=== PATIENT | female | born 1960 | race African-American/Black ===

== ENCOUNTER 2016-04-13 10:08 | Inpatient (IN) ==
--- NOTE | 2016-04-13 10:48 | PROVIDER DOCUMENTATION ---
HPI-General Adult - General Chief Complaint: Abnormal Lab[s] Stated Complaint: ABNORMAL LABS Time Seen by Provider: 04/13/16 10:27 Source: patient Allergies/Adverse Reactions: Patient Allergies Allergy/AdvReac Type Severity Reaction Status Date / Time No Known Allergies Allergy Verified 04/13/16 10:25 Home Medications: Home Medication List Medication Instructions Recorded Confirmed Last Taken Type Lisinopril/Hydrochlorothiazide 1 each PO DAILY 03/23/14 01/29/16 04/13/16 07:15 History [Lisinopril-Hctz 20-25 mg Tab] Potassium Chloride 20 meq PO DAILY 06/28/15 01/29/16 04/11/16 08:00 History Mesalamine D.r. [Lialda] 4.8 gm PO DAILY #112 tablet 01/31/16 04/11/16 10:00 Rx Sucralfate [Carafate] 1 gm PO 4XDAY #120 tablet 01/31/16 04/11/16 08:00 Rx Prednisone 10 mg PO DAILY 04/13/16 04/13/16 04/12/16 08:00 History - History of Present Illness -Gen Adult Nature of Presenting Problems: Pt is 55 y/o F presents to the ED with abnormal labs. Pt states having lab work done at [facility] where she receives iron infusions due to anemia. Pt denies pain at this time. Pt states having sarcoidosis. Pt states having acute renal failure in 2013. Pt denies N/V/D Location of Pain/Injury: reports: none Pain Radiation: reports: no radiation Quality of Pain: reports: none Onset/Duration: reports: just prior to arrival Timing: reports: still present Context/Activities at Onset: reports: light activity Modifying Factors: improves with: nothing Associated Symptoms: reports: shortness of breath. denies: anxiety, arm pain, back/neck pain, chest pain, constipation, cough, diaphoresis, diarrhea, dizziness, EENT symptoms, fatigue, fever/chills, genitourinary problems, headaches, heartburn, joint pain, loss of appetite, malaise, muscle aches, sinus congestion/drainage, nausea, rash, seizure, sensory/motor loss, pain with inspiration, swelling/mass in abdomen, syncope, vomiting, weakness, trouble walking Similar Symptoms Previously?: Yes Recently seen or treated by another doctor?: No Review of Systems - Adult - REVIEW OF SYSTEMS - ADULT Constitutional: denies: chills, fever Eyes: denies: blurred vision, double vision Ears, Nose, Mouth & Throat: denies: ear pain, nose pain, throat pain Cardiovascular: denies: chest pain, heart murmur, irregular heart rate Respiratory: reports: shortness of breath. denies: cough, wheezing Gastrointestinal: denies: abdominal pain, diarrhea, nausea, vomiting Genitourinary: denies: dysuria, hematuria Musculoskeletal: denies: bone pain, joint pain, neck pain Integumentary: denies: hives, itching Neurological: denies: dizziness/vertigo, headache/migraines Psychiatric: reports: no symptoms reported Endocrine: reports: no symptoms reported Hematologic/Lymphatic: reports: no symptoms reported Allergic/Immunologic: reports: no symptoms reported All Other Systems: Reviewed and Negative Past History - Adult - PAST MEDICAL HISTORY-ADULT Review of Records: reports: Nursing Assessment Review, Medications Reviewed, Social history reviewed & non-contributory. Major Childhood Illnesses: reports: denies history Cardiovascular: reports: HTN Respiratory: reports: other (sarcoidosis) Gastrointestinal: reports: GERD Obstetrical/Gynecological: reports: denies history Genitourinary: reports: kidney disease (acute) Musculoskeletal: reports: arthritis Neurological: reports: denies history Endocrine/Immune: reports: denies history Other Conditions: reports: denies history Additional History: renal failure - PRIOR SURGERIES/PROCEDURES Surgical/Procedure History: reports: hysterectomy, - PRIOR HOSPITALIZATIONS Prior Hospitalizations: reports: for other non-related - IMMUNIZATION STATUS Childhood Immunizations: See Nurse Assessment Flu Vaccine: See Nurse Assessment - FAMILY HISTORY Family History: reviewed, not pertinent - SOCIAL HISTORY Smoking: denies Substance Use: denies Living Situation: family Physical Exam-General - PHYSICAL EXAM-ADULT Initial Vital Signs Reviewed: Yes - CONSTITUTIONAL General Appearance: appears well, alert, no apparent distress - EYES Eyes: PERRL/EOMI, fundi clear, no AV nicking, pale conjunctivae - HEAD, EARS, NOSE, MOUTH & THROAT HENMT: normocephalic/atraumatic, moist mucous membranes, normal ENT inspection, TMs normal, pharynx normal - NECK Neck: non-tender, full range of motion, supple, normal inspection - RESPIRATORY Respiratory: chest non-tender, lungs clear, normal breath sounds, no pleuratic chest pain, no respiratory distress, no accessory muscle use - CARDIOVASCULAR Cardiovascular: normal peripheral pulses, regular rate, rhythm, no edema, no gallop, no JVD, no murmur - GASTROINTESTINAL (ABDOMEN) Abdominal Exam: normal bowel sounds, non tender, soft, no organomegaly, no pulsatile mass - LYMPHATIC Lymphatic: no adenopathy - MUSCULOSKELETAL Back Exam: normal inspection, no CVA tenderness, no vertebral tenderness Extremity: normal range of motion, non-tender, normal gait, normal inspection, no pedal edema, no calf tenderness, normal capillary refill, pelvis stable - SKIN Integumentary: normal turgor, warm/dry, pallor - NEUROLOGIC 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, grossly normal, no motor/sensory deficits - PSYCHIATRIC Psych/Mental Status: normal mood/affect, normal thought content, normal thought process, oriented x 3 Progress - PLAN OF CARE/RESULTS Progress/Plan/Lab Results: Laboratory Tests 04/13/16 10:44 Crossmatch See Detail Orders Category Date Time Status PRBC [LRPC (RED CELLS)] [BBK] Stat Lab 04/13/16 10:44 Results TYPE & SCREEN [BBK] Stat Lab 04/13/16 10:44 Results Vital Signs - 24 hr 04/13/16 04/13/16 10:11 11:14 Temperature 97.6 F Pulse Rate 99 H 83 Respiratory 20 Rate Blood Pressure 108/49 O2 Sat by Pulse 100 98 Oximetry Laboratory Tests 04/13/16 10:44 Blood Type B POSITIVE Antibody Screen NEGATIVE Crossmatch See Detail Laboratory Tests 04/13/16 04/13/16 04/13/16 10:44 10:44 10:44 WBC RBC Hgb Hct MCV MCH MCHC RDW Std Deviation Plt Count MPV Percent Retic Retic Hgb Equivalent PT INR D-Dimer Sodium Potassium Chloride Carbon Dioxide Anion Gap BUN Creatinine Estimated GFR/1.73 m2 BUN/Creatinine Ratio Glucose Calculated Osmolality Calcium Magnesium Total Bilirubin AST ALT Alkaline Phosphatase Creatine Kinase 47 Troponin T < 0.010 [id number]-Wimxsjbokov Pept Total Protein Albumin Globulin Albumin/Globulin Ratio Urine Source Urine Color Urine Turbidity Urine pH Ur Specific Estill Urine Protein Ur Glucose (Stick) Ur Ketones (Stick) Urine Blood Urine Nitrite Urine Bilirubin Urobilinogen Dipstick Urine Leukocytes Urine WBC (Auto) Urine RBC (Auto) U Epithel Cells (Auto) Urine Bacteria (Auto) Ur Random Creatinine U Random Total Protein Ur Random Sodium Ur Random Chloride Ur Random Urea Nitrogn Protein/Creatinin Ratio Blood Type B POSITIVE Antibody Screen NEGATIVE Crossmatch See Detail 04/13/16 04/13/16 04/13/16 10:44 10:44 10:44 WBC 9.38 RBC 2.24 L Hgb 6.1 L Hct 17.8 L MCV 79.5 L MCH 27.2 MCHC 34.3 RDW Std Deviation 15.7 H Plt Count 221 MPV 9.5 Percent Retic Retic Hgb Equivalent PT 10.9 INR 1.03 D-Dimer Sodium 140 Potassium 3.3 L Chloride 101 Carbon Dioxide 21 L Anion Gap 18 BUN 42 H Creatinine 2.3 H Estimated GFR/1.73 m2 27 BUN/Creatinine Ratio 18 Glucose 105 H Calculated Osmolality 290 Calcium 8.7 L Magnesium Total Bilirubin 1.09 H AST 14 ALT 12 Alkaline Phosphatase 76 Creatine Kinase Troponin T [id number] Pept Total Protein 6.8 Albumin 4.2 Globulin 2.6 Albumin/Globulin Ratio 1.6 Urine Source Urine Color Urine Turbidity Urine pH Ur Specific Estill Urine Protein Ur Glucose (Stick) Ur Ketones (Stick) Urine Blood Urine Nitrite Urine Bilirubin Urobilinogen Dipstick Urine Leukocytes Urine WBC (Auto) Urine RBC (Auto) U Epithel Cells (Auto) Urine Bacteria (Auto) Ur Random Creatinine U Random Total Protein Ur Random Sodium Ur Random Chloride Ur Random Urea Nitrogn Protein/Creatinin Ratio Blood Type Antibody Screen Crossmatch 04/13/16 04/13/16 04/13/16 10:44 10:44 10:44 WBC RBC Hgb Hct MCV MCH MCHC RDW Std Deviation Plt Count MPV Percent Retic Retic Hgb Equivalent PT INR D-Dimer 0.77 H Sodium Potassium Chloride Carbon Dioxide Anion Gap BUN Creatinine Estimated GFR/1.73 m2 BUN/Creatinine Ratio Glucose Calculated Osmolality Calcium Magnesium 2.3 Total Bilirubin AST ALT Alkaline Phosphatase Creatine Kinase Troponin T Tvs-Z-Wxynsonsjrq Pept 32 Total Protein Albumin Globulin Albumin/Globulin Ratio Urine Source Urine Color Urine Turbidity Urine pH Ur Specific [place]ill Urine Protein Ur Glucose (Stick) Ur Ketones (Stick) Urine Blood Urine Nitrite Urine Bilirubin Urobilinogen Dipstick Urine Leukocytes Urine WBC (Auto) Urine RBC (Auto) U Epithel Cells (Auto) Urine Bacteria (Auto) Ur Random Creatinine U Random Total Protein Ur Random Sodium Ur Random Chloride Ur Random Urea Nitrogn Protein/Creatinin Ratio Blood Type Antibody Screen Crossmatch 04/13/16 04/13/16 04/13/16 10:44 14:17 14:17 WBC RBC Hgb Hct MCV MCH MCHC RDW Std Deviation Plt Count MPV Percent Retic 3.56 H Retic Hgb Equivalent 23.6 L PT INR D-Dimer Sodium Potassium Chloride Carbon Dioxide Anion Gap BUN Creatinine Estimated GFR/1.73 m2 BUN/Creatinine Ratio Glucose Calculated Osmolality Calcium Magnesium Total Bilirubin AST ALT Alkaline Phosphatase Creatine Kinase Troponin T Sed-I-Gylzalpepzy Pept Total Protein Albumin Globulin Albumin/Globulin Ratio Urine Source CLEAN CATCH Urine Color YELLOW Urine Turbidity CLEAR Urine pH 5.0 Ur Specific [place]ill 1.010 Urine Protein NEGATIVE Ur Glucose (Stick) NEGATIVE Ur Ketones (Stick) NEGATIVE Urine Blood NEGATIVE Urine Nitrite NEGATIVE Urine Bilirubin NEGATIVE Urobilinogen Dipstick NORMAL Urine Leukocytes TRACE A Urine WBC (Auto) <10 Urine RBC (Auto) <10 U Epithel Cells (Auto) <10 Urine Bacteria (Auto) NEGATIVE Ur Random Creatinine 118.0 H U Random Total Protein 9.6 Ur Random Sodium 39 Ur Random Chloride 26 Ur Random Urea Nitrogn 596 Protein/Creatinin Ratio 0.1 Blood Type Antibody Screen Crossmatch - EKG 1 Time of EKG reading by physician:: 14:09 EKG Read and Signed by:: Eleazar Will EKG Interpretation (*Must complete 3 of following elements*): Abnormal Rate: 77 Rhythm: normal sinus rhythm Comments: possible inferior infarct, age undetermined - CONSULTS/PCP/HOSPITALIST Notification #1 *Consult/PCP/Hospitalist*: Dr. Bansal Time Discussed: 12:25 (Dr. Bansal accepted admit ) Reason/Comments: Dr. Will consults with Dr. Bansal about admit of Pt Consult Disposition: Admit Departure - Departure Time of Disposition Order: 12:26 DIAGNOSIS: Anemia, Iron deficiency Disposition: ADMITTED INPATIENT 09 Certified Medical Emergency: Emergent Condition: Stable Additional Instructions: ED Follow Up Instructions: You have been treated by a care provider in the Emergency Department. These instructions are being provided to you so you can have an understanding of how to care for yourself upon discharge. Upon discharge from the Emergency Department, you are responsible for making arrangements for follow-up care by a physician of your choice. Take all prescribed medications as directed. Return to the Emergency Department immediately for any new or worsening symptoms. You may call the Physician Referral phone number at [phone] to obtain a list of Physicians who are taking new patients. Referrals: Brant Hancock MD [Primary Care Provider] - Attestation - Scribe Verification/Attestation Scribe:: Mahi Harrison Acting as Scribe for:: Eleazar Will Scribe documention review:: This chart was documented by a scribe and accurately reflects the service the provider performed and the decisions made by the provider.
[2016-04-13 13:35] LABS: INR 1.03; PROTIME 10.9 Seconds (9.2-11.7)
[2016-04-13 13:36] LABS: HEMATOCRIT 17.8 % (37.0-47.0); HEMOGLOBIN 6.1 g/dL (12.0-16.0); MCH 27.2 PG (27-31); MCHC 34.3 g/dL (33-37); MCV 79.5 FL (81-99); MPV 9.5 FL (7.4-10.4); RBC 2.24 XMIL (4.2-5.4)
--- NOTE | 2016-04-13 13:41 | Diag Imaging Result Document ---
PROCEDURE NAME: CHEST-2 VIEWS - 04/13/2016 PA AND LATERAL RADIOGRAPH OF THE CHEST: COMPARISON: 01/30/2016. FINDINGS: The lungs are grossly clear. There is no discrete pleural fluid collection or evidence of pneumothorax. The cardiomediastinal silhouette and upper airway are grossly unremarkable. IMPRESSION: No evidence of acute chest pathology.
[2016-04-13 13:42] LABS: ALBUMIN 4.2 g/dL (3.5-5.0); CALCIUM 8.7 mg/dL (8.8-10.2); POTASSIUM 3.3 mmol/L (3.5-5.1); TOTAL BILIRUBIN 1.09 mg/dL (0.20-1.00); TOTAL PROTEIN 6.8 g/dL (6.3-8.3)
[2016-04-13] MEDS ORDERED: KLOR-CON PO ONE (14:15)
[2016-04-13 14:16] LABS: RETIC% 3.56 % (0.8-2.1); RETIC-HE 23.6 PG (28.2-36.6)
[2016-04-13 14:23] LABS: URINE MICRO REVIEW NEEDED? NO; URINE SOURCE CLEAN CATCH
[2016-04-13 14:28] LABS: BILIRUBIN URINE NEGATIVE (NEGATIVE); BLOOD URINE NEGATIVE (NEGATIVE); COLOR YELLOW; GLUCOSE URINE NEGATIVE (NEGATIVE); LEUKOCYTES URINE TRACE (NEGATIVE); NITRITE URINE NEGATIVE (NEGATIVE); PROTEIN URINE NEGATIVE (NEGATIVE); TURBIDITY URINE CLEAR (CLEAR); UROBILINOGEN URINE NORMAL (NORMAL)
[2016-04-13 14:30] LABS: UR EPITHELIAL CELLS <10 /HPF (<10); URINE BACTERIA NEGATIVE /HPF; URINE CULTURE NEEDED? YES; URINE RBC <10 /HPF (<10); URINE WBC <10 /HPF (<10)
[2016-04-13 14:43] LABS: PROTEIN CREAT RATIO 0.1; UR PROT RANDOM 9.6 mg/dL
--- NOTE | 2016-04-13 16:07 | ECHO REPORT ---
ORDER DATE: 04/13/2016 ECHOCARDIOGRAPHIC MEASUREMENTS: 1. Interventricular septum 0.9. Left ventricular posterior wall 0.9. Diastolic diameter 3.8. Left atrium 4.2. Aorta 2.9. 2. Mitral valve was normal. Tricuspid valve was normal. 3. Aortic valve leaflets are trileaflet. Pulmonic valve was normal. There is trivial pulmonary regurgitation. 4. Normal left ventricular cavity size. Estimated ejection fraction of 65%. 5. There is mild mitral regurgitation. Trace tricuspid regurgitation. Peak velocity across the aortic valve less than 2 m/sec. By Doppler studies there is no aortic stenosis or regurgitation. 6. Hyperdynamic left ventricular systolic function. 7. There is no pericardial effusion or obvious intracardiac mass or thrombus.
--- NOTE | 2016-04-13 16:17 | EKG Report ---
Test Performed on : 04/13/2016 2:09:03 PM Test Reason : sob Blood Pressure : / mmHG Vent. Rate : 077 BPM Atrial Rate : 077 BPM P-R Int : 182 ms QRS Dur : 088 ms QT Int : 378 ms P-R-T Axes : 025 009 009 degrees QTc Int : 427 ms Normal sinus rhythm. Possible Inferior infarct , age undetermined Abnormal ECG When compared with ECG of 30-JAN-2016 06:45, Borderline criteria for Inferior infarct are now present Unconfirmed Result
[2016-04-13] MEDS ORDERED: TYLENOL PO PRN (17:42)
[2016-04-13] MEDS ORDERED: ZOFRAN IV PRN (17:42)
--- NOTE | 2016-04-13 19:24 | Diag Imaging Result Document ---
PROCEDURE NAME: US RENAL 2 (RETROPER) COMPLETE - 04/13/2016 BILATERAL RENAL ULTRASOUND: FINDINGS: The right kidney measures 10.3 x 4.6 x 3.6 cm in size. The left kidney measures 9.8 x 3.1 x 3.8 cm in size. There is no renal mass fracture identified. There is no other substantial abnormality identified. Images of the urinary bladder demonstrate no lesion. IMPRESSION: 1. Unremarkable exam. 2. No hydronephrosis.
--- NOTE | 2016-04-13 21:04 | HISTORY AND PHYSICAL ---
ONCOLOGIST: Sowmya Cobb M.D. ONCOLOGY RN: Khoa Trimble M.D. PRIMARY CARE PHYSICIAN: Brant Hancock M.D. HOE WORKER: Saige Carpenter M.D. CHIEF COMPLAINT: Abnormal lab data and shortness of breath. HISTORY OF PRESENT ILLNESS: Mrs. Sharma is a very pleasant, 55-year-old female with a history of iron deficiency followed by Dr. Cobb for iron infusions. She also has sarcoidosis and is followed by Dr. Trimble. She was last seen by our service in January at which time she notes symptomatic gallbladder disease and subsequently had a cholecystectomy by Dr. Agarwal on 01/27/2016. She returns to our facility today with reports of fairly low anemia and shortness of breath. She states she had fairly acute onset of shortness of breath which began on Wednesday. She was unable to walk perhaps 50 feet before she got significantly short of breath. She denies any chest pain but she does report pain in her back and right shoulder. Symptoms are relieved by rest. She has had no cough or congestion. No fever or chills. No lower extremity edema. No orthopnea. The symptoms have progressively been getting worse. She saw Dr. Cobb today for a regularly scheduled appointment but did report to Dr. Cobb that she was having symptoms. Blood was drawn and she was found to have acute kidney injury and a hemoglobin of 2.5. She was then sent over to the ER for further treatment and stabilization. She denies any overt blood loss. She denies melena or hematochezia. There has been no hematemesis. Her vitals are currently stable and we are going to admit her for further treatment and evaluation. PAST MEDICAL HISTORY: 1. Chronic anemia followed by Dr. Cobb for iron infusions. 2. Severe gastritis status post EGD by Dr. Trevino. 3. History of recent pancolitis. 4. Hypertension. 5. Sarcoidosis. 6. Osteoarthritis. 7. Degenerative joint disease. PAST SURGICAL HISTORY: Cholecystectomy, hysterectomy, x2. SOCIAL HISTORY: Patient denies tobacco, alcohol or drug use. FAMILY HISTORY: Noncontributory. ALLERGIES: No known drug allergies. MEDICATIONS: None. HOME MEDICATIONS: Lisinopril/hydrochlorothiazide 1 daily, KCl 20 mEq p.o. daily, prednisone 10 mg daily, 4.8 g as directed, Carafate 1 g 4 times a day. PHYSICAL EXAMINATION: VITAL SIGNS: Blood pressure is 119/67, heart rate 79, respiratory rate 16, O2 saturation 100% on room air. Temperature is 97.6 degrees. GENERAL: Well-developed, well-nourished, female, lying in hospital bed in no acute distress. NEUROLOGIC: The patient is awake, alert, oriented. She follows commands without focal deficits. HEENT: Head atraumatic and normocephalic. Her pupils are equal, round, reactive to light. Oral mucosa is moist. Trachea is midline. No JVD or carotid bruits. CHEST: Clear to auscultation bilaterally. CARDIOVASCULAR: Regular rate and rhythm. S1-S2 is noted. No murmurs, gallops, clicks, rubs. GASTROINTESTINAL: Soft, nondistended, nontender. Bowel sounds are positive. EXTREMITIES: Without edema, clubbing or cyanosis. Pulses are palpable bilaterally. DIAGNOSTIC DATA: Sodium 140, potassium 3.3, chloride 101, CO2 21, anion gap 18, BUN 42, creatinine 2.3, glucose 105, bilirubin 1.09, AST 14, ALT 12, alkaline phosphatase 76, troponin negative, albumin 4.2. WBC 9.38, hemoglobin 6.1, hematocrit 17.8, platelet count 221,000. PT 10.9, INR 1.03. ASSESSMENT AND PLAN: 1. Dyspnea: Unclear as to the etiology at this time. Patient does have sarcoidosis but we will rule out myocardial infarction with cardiac enzymes, second echocardiogram and EKG. We will also follow along with telemetry. 2. Profound anemia: Likely gastric loss and combination of iron-deficiency. While the patient denies any overt GI bleeding, she had have some fairly significant gastritis and ulcer disease just a elciq-hig-u-half ago. We will continue with Protonix and consult with Dr. Cobb. 3. Acute blood loss anemia on top of chronic anemia: The patient is being typed and crossed and will give her 2 units of PRBCs now and check an hemoglobin and hematocrit later. 4. Acute kidney injury: The patient's creatinine is 2.3. We are going to check a renal ultrasound and comprehensive urine electrolytes. If she has no improvement within the next 12-24 hours, we will consider renal consultation. 1. Sarcoidosis: Patient is on steroids at home. We will hold these for now while her workup is being done. We will resume once she is a bit more stable. 2. Hypertension: We will treat with symptomatic IV p.r.n. medications for now. 3. Gastrointestinal prophylaxis with Protonix. 4. Deep vein thrombosis prophylaxis with TEDs, SCDs. 5. Further recommendations to follow. Dictated by CANDIDA Lopez for Lady Bansal MD
[2016-04-13] MEDS: NS 1,000 ML IV SCH (21:38)
[2016-04-14] MEDS: SODIUM CHLORIDE 0.9% INJ SCH ×2 (06:01→22:04)
[2016-04-14 06:50] LABS: HEMATOCRIT 24.6 % (37.0-47.0); HEMOGLOBIN 8.5 g/dL (12.0-16.0); MCH 27.9 PG (27-31); MCHC 34.6 g/dL (33-37); MCV 80.7 FL (81-99); MPV 9.2 FL (7.4-10.4); RBC 3.05 XMIL (4.2-5.4)
[2016-04-14] MEDS ORDERED: PROTONIX IV SCH (07:00)
[2016-04-14 07:37] LABS: ALBUMIN 3.6 g/dL (3.5-5.0); CALCIUM 8.8 mg/dL (8.8-10.2); POTASSIUM 4.1 mmol/L (3.5-5.1)
[2016-04-14] MEDS ORDERED: SODIUM CHLORIDE 0.9% INJ SCH (10:00)
[2016-04-14] MEDS: CARAFATE PO SCH ×4 (13:30→22:04)
[2016-04-14 15:13] LABS: FREE T4 1.02 ng/dL (0.93-1.70)
--- NOTE | 2016-04-14 15:31 | Diag Imaging Result Document ---
PROCEDURE NAME: ABDOMEN/PELVIS W/O CONTRAST - 04/14/2016 CT UROGRAM WITHOUT CONTRAST: FINDINGS: There are fibrotic appearing opacities in the right middle lobe and lingula. This was also present on 01/29/2016 as well as linear fibrotic-appearing opacities scattered throughout the lower lobes. There is a calcified granuloma in the left posterior costophrenic sulcus. There has been cholecystectomy. There is no evidence of hydronephrosis or nephrolithiasis. The spleen and adrenal glands are not enlarged. There is no evidence of appendicitis. There is questionable mucosal thickening throughout the colon. No pericolic inflammatory changes are present, however. The small bowel is not distended. There is fluid throughout the colon. There is no evidence of free fluid in the pelvis or abdomen. The regional skeleton is intact. IMPRESSION: The possibility of low-level colitis cannot be excluded. Otherwise, no definite evidence of acute disease.
--- NOTE | 2016-04-14 16:27 | PROGRESS NOTE ---
DATE: 04/14/2016 SUBJECTIVE: The patient reports that she has been having abdominal cramping for the last several weeks and reports bright red blood per rectum that occurred last night. OBJECTIVE: Vital Signs: Temperature 97.9 degrees, blood pressure 99/55, heart rate 74, respirations 18, O2 saturations 99% on room air. General: This is a elderly female, lying comfortably in bed, in no acute distress. Head: Normocephalic atraumatic. Heart: S1, S2. Normal. Regular rate and rhythm. Lungs: Clear to auscultation bilaterally. No wheezing. No rales. No rhonchi. Abdomen: Positive bowel sounds. Soft, nontender, nondistended. Extremities: No edema. No cyanosis. No calf tenderness. Neurologic: The patient is alert and oriented x3. No focal neurologic deficits noted. LABS: White blood cell count 6.2, hemoglobin 8.5, hematocrit 24, platelets 196,000. Sodium 140, potassium 4.1, chloride 106, CO2 20, BUN 7, creatinine 1.3, glucose 98. ASSESSMENT AND PLAN: 1. Suspected gastrointestinal bleed. The patient reports having bright red blood per rectum. The patient does have internal and external hemorrhoids seen on endoscopy a few months ago. This may be the source of the patient's bleeding. We will consult GI. The patient has been started on IV Protonix in the meantime. 2. Severe anemia. The patient states feels improved after receiving 2 units of packed red blood cells. We will continue to trend H and H closely. 3. Acute kidney injury. Improved. Continue with gentle IV fluid hydration. 4. History of pancolitis. Will order a CT of the abdomen and pelvis. 5. Sarcoidosis. Aware. 6. Deep vein thrombosis prophylaxis. Continue with SCDs.
[2016-04-14] MEDS: NS 1,000 ML IV SCH ×2 (17:35→17:36)
[2016-04-14] MEDS: PROTONIX IV SCH ×2 (17:35→22:04)
[2016-04-14] MEDS: PREDNISONE PO SCH (17:40)
[2016-04-14] MEDS: LIALDA PO SCH (18:06)
[2016-04-15] MEDS: NS 1,000 ML IV SCH (03:32)
[2016-04-15] MEDS: SODIUM CHLORIDE 0.9% INJ SCH ×2 (06:13→19:32)
[2016-04-15] MEDS: PROTONIX IV SCH ×2 (06:13→19:32)
[2016-04-15 07:06] LABS: HEMATOCRIT 24.7 % (37.0-47.0); HEMOGLOBIN 8.7 g/dL (12.0-16.0); MCH 28.2 PG (27-31); MCHC 35.2 g/dL (33-37); MCV 79.9 FL (81-99); MPV 8.8 FL (7.4-10.4); RBC 3.09 XMIL (4.2-5.4)
[2016-04-15 07:27] LABS: CALCIUM 8.7 mg/dL (8.8-10.2); POTASSIUM 4.4 mmol/L (3.5-5.1)
--- NOTE | 2016-04-15 07:40 | CONSULTATION ---
DATE OF CONSULTATION: 04/14/2016 REFERRING PHYSICIAN: Dr. Lady Bansal MD. PRIMARY CARE PHYSICIAN: Dr. Brant Hancock MD. PRIMARY ONCOLOGIST/RADIOLOGY SERVICES MANAGER: Dr. Sowmya Cobb MD. PRIMARY RESEARCH TECH: Dr. Khoa Trimble MD. INDICATION FOR CONSULTATION: 1. Severe anemia. 2. Rectal bleeding. HISTORY OF PRESENT ILLNESS: The patient is a very pleasant, 55-year-old female who is followed in our clinic. In January 2016 she was evaluated for a significant GI bleed. On EGD, she was found to have erosive esophagitis, Schatzki's ring, hiatal hernia, gastric stasis, gastritis, and duodenal polyps with pancreatic rest. She has a known history of peptic ulcer disease in the past. Because she also had diarrhea, she underwent a colonoscopy that was remarkable for michel colitis. She was placed on prednisone as an inpatient. Subsequently, Lialda was added as an outpatient for persistent diarrhea and anemia. She was referred to Dr. Sowmya Cobb for iron infusions and has continued to follow in our clinic. She had been very reluctant to start any advanced therapies for the treatment of her ulcerative colitis and was awaiting follow up for re-evaluation on Lialda. She presented to Dr. Sowmya Cobb's office with shortness of breath and weakness. She was found to have a hemoglobin of 4.5 and was admitted to the hospital for further evaluation. Post transfusion, her hemoglobin was 6.1. She underwent CT scanning which revealed persistent colitis in the colon. We are asked to participate in her care. PAST MEDICAL HISTORY: 1. Chronic anemia. 2. GI history as above. 3. Recent pancolitis with an IBD profile consistent with ulcerative colitis. 4. Hypertension. 5. Sarcoidosis. 6. Osteoarthritis. 7. Degenerative joint disease. PAST SURGICAL HISTORY: 1. Cholecystectomy. 2. Hysterectomy. 3. x2. SOCIAL HISTORY: Negative for alcohol, tobacco, or recreational drug use. MEDICATION ALLERGIES: None. HOME MEDICATIONS: 1. Lisinopril/hydrochlorothiazide. 2. Potassium chloride. 3. Prednisone. 4. Lialda 4.8 g daily as directed. 5. Carafate. Of note, she was also supposed to be taking a PPI therapy but it is not included in her admission medication list. She has been prescribed Nexium 40 mg daily as of January 2016. REVIEW OF SYSTEMS: Remarkable for shortness of breath and weakness. She denies other symptoms. PHYSICAL EXAMINATION: General: On exam, she is in no acute distress. Vital signs: Her blood pressure is 103/61, pulse 72, respiration 14, temperature of 98.2 degrees. HEENT: Negative for jaundice. Her conjunctivae are very pale. Oropharyngeal mucosal membranes are dry. She has missing teeth but otherwise no specific oral lesions. Pulmonary: Lungs are clear to auscultation with normal inspiratory effort. Cardiovascular Exam: Reveals regular rate and rhythm with no murmurs, gallops, or rubs. Abdominal Exam: Reveals normoactive bowel sounds. The abdomen is soft with mild diffuse tenderness but no rebound or guarding. Extremities: Bilaterally are negative for cyanosis, clubbing, or edema. OBJECTIVE DATA: Remarkable for a hemoglobin of 8.5 with a hematocrit of 24.6, post transfusion. Her white count is 6.25 with 196,000 platelets. Her sedimentation rate is 55. Her sodium is 140, potassium 4.1, chloride 106, CO2 20, BUN 31, creatinine 1.3 with a glucose of 98. Calcium is 8.8 with a phosphorus of 3.6 and an albumin of 3.6. Her TSH is 2.58. IMPRESSIONS: 1. Severe anemia. 2. Ulcerative colitis. 3. Gastroesophageal reflux disease. 4. Obesity. 5. Sarcoidosis. RECOMMENDATION: 1. I agree with the transfusion as you are doing. 2. Continue Protonix 40 mg IV q.12 hours. 3. Continue Carafate 1 g p.o. 4 times a day. 4. For the time being, I would continue the Lialda. 5. In light of the fact that the patient has now failed Lialda therapy as an outpatient, I recommend that we consider Remicade. I will discuss with Dr. Sowmya Cobb pursuing insurance approval to begin treatment course with Remicade infusions every 8 weeks. Although the patient does not particularly care for needles or infusions, she is willing to consider this in light of her lack of response to the oral therapy with Lialda. 6. Additional recommendations to follow based on her clinical course.
[2016-04-15] MEDS: PREDNISONE PO SCH (09:18)
[2016-04-15] MEDS: CARAFATE PO SCH ×4 (09:18→21:36)
[2016-04-15] MEDS: LIALDA PO SCH (09:18)
--- NOTE | 2016-04-15 15:28 | PROGRESS NOTE ---
DATE: 04/15/2016 SUBJECTIVE: The patient states that she is feeling a lot better today. She denies having any blood in her stools. No acute events noted overnight. OBJECTIVE: Vital Signs: Temperature 98.4 degrees, blood pressure 119/71, heart rate 70, respirations 18 and O2 saturations 100% on room air. General: This is an elderly female lying in bed in no acute distress. HEENT: Head normocephalic atraumatic. Heart: S1, S2. Normal. Regular rate and rhythm. Lungs: Clear to auscultation bilaterally. No wheezes. No rales. No rhonchi. Abdomen: Positive bowel sounds. Soft, nontender and nondistended. Extremities: No edema. No cyanosis. No calf tenderness. Neurologic: The patient is alert and oriented x3. LABORATORY: White blood cell count 7.5, hemoglobin 8.7, hematocrit 24 and platelets 229,000. Sodium 136, potassium 4.4, chloride 102, CO2 19, BUN 22, creatinine 1.2, glucose 114, calcium 8.7, phosphorus 3 magnesium 2.2 and albumin 4. ASSESSMENT AND PLAN: 1. Severe anemia improved. The patient's hemoglobin and hematocrit is improved status post 2 units of packed red blood cells. Hematology and GI are following. 2. Ulcerative colitis. Management as per Dr. Trevino. 3. Hypotension. The patient's antihypertensives have been on hold throughout the hospitalization due to hypotension. The patient's cortisol level is abnormally low. The patient may benefit from a cosyntropin stim test. 4. Acute kidney injury. Improved. 5. History of pancolitis. Aware. 6. Sarcoidosis.Aware. 7. Disposition. The patient can be discharged home once okay with Dr. Trevino. [facility]
--- NOTE | 2016-04-15 17:59 | CONSULTATION ---
DATE OF CONSULTATION: 04/14/2016 REASON FOR CONSULTATION: Anemia, patient known. REQUESTING PHYSICIAN: Lady Bansal MD HISTORY OF PRESENT ILLNESS: Ms. Sharma is a 55-year-old female that we see for anemia. She has history of previous GI bleeds as well as a history of gastritis and peptic ulcer disease. Patient presented to our office on 04/13/2016 for a followup visit. Upon presentation, she was found to be weak. Her vital signs were taken and she was found to have a very low blood pressure of 71/33. The patient was also notably short of breath, especially on exertion. The patient was started on some IV fluids in the office while we waited for CBC. Her CBC returned and we found that she had a hemoglobin of 5.4, which was significantly less than previously. The patient denies any obvious clinical bleeding. Later, the patient was also found to have acute kidney injury with elevated creatinine of 2.3. The patient was sent directly to the emergency department for further evaluation. She was subsequently admitted. She has now received 2 units of packed red blood cells. She continues to deny any active bleeding. PAST MEDICAL HISTORY: 1. Anemia. 2. Severe gastritis. 3. History of pancolitis. 4. Hypertension. 5. Sarcoidosis. 6. Osteoarthritis. 7. Degenerative joint disease. PAST SURGICAL HISTORY: 1. Cholecystectomy. 2. Hysterectomy. 3. x2. FAMILY HISTORY: Positive for sickle cell anemia, heart disease and hypertension. SOCIAL HISTORY: Patient denies any tobacco, alcohol or drug use. REVIEW OF SYSTEMS: As per the HPI. All else is negative or noncontributory. PHYSICAL EXAMINATION: Vital Signs: Temperature 98.3 degrees, heart rate 73, respirations 18, blood pressure 96/66, O2 saturation 100% on room air. HEENT: Normocephalic atraumatic. Eyes: Pupils equal, round, reactive. Ears, nose, throat, neck, and mouth: Oral mucosa is normal. Trachea is midline. Cardiovascular: S1-S2 heard. Regular rate and rhythm today. No gallops or rubs appreciated. Respiratory: Clear to auscultation bilaterally. Patient has normal respiratory effort. No rhonchi, rales or wheezing noted. Abdomen: Soft, nondistended. Positive bowel sounds. Musculoskeletal: No bony abnormalities noted. Extremities: Some trace bilateral extremity edema. No other edema noted. Neurologic: Patient is alert, and oriented x3. No focal motor deficits noted. LABORATORY STUDIES: Patient has a white blood cell 6.25, a hemoglobin 8.5 after 2 units of packed red blood cells, hematocrit of 24.6, and platelet count 196,000. Sodium 140, potassium 4.1, chloride 106, CO2 20, BUN 31, creatinine improved at 1.3, glucose is 98. ASSESSMENT: 1. Anemia. Likely blood loss on top of chronic anemia. Likely from a gastrointestinal source given her history of gastritis and peptic ulcer disease. She is already status post 2 units of packed red blood cells. We checked iron and vitamin studies in the office as those labs were already ordered before she was sent to the emergency department. Review those and will give iron if patient needs it at this time. Agree with gastrointestinal workup. 2. Acute kidney injury. Creatinine is already better today at 1.3. It was 2.3 upon admission. She is undergoing a renal ultrasound which is currently pending. Agree with Nephrology consult if there is no further improvement or worsening of her creatinine. 3. Dyspnea. This is likely secondary to her profound anemia yesterday. Possibly also related to her sarcoidosis. Primary team is ruling out acute myocardial infarction. 4. Hypotension. Much better after 2 units of blood and some IV hydration. P.r.n. intravenous antihypertensives will be given as her p.o. medications have now been discontinued. We want to thank you for this consult and allowing us to participate in Ms. Sharma' care while she is at [facility]. We will continue to follow along and adjust our treatment plan per her hospital course. Dictated by ESA Robles for Sowmya Cobb MD
[2016-04-16] MEDS: SODIUM CHLORIDE 0.9% INJ SCH ×2 (06:48→20:12)
[2016-04-16] MEDS: PROTONIX IV SCH ×2 (06:48→20:12)
[2016-04-16 07:10] LABS: HEMATOCRIT 25.5 % (37.0-47.0); HEMOGLOBIN 8.9 g/dL (12.0-16.0); MCH 27.8 PG (27-31); MCHC 34.9 g/dL (33-37); MCV 79.7 FL (81-99); MPV 8.7 FL (7.4-10.4); RBC 3.2 XMIL (4.2-5.4)
[2016-04-16 07:45] LABS: AGAP 14; ALBUMIN 4.1 g/dL (3.5-5.0); BUN 19 mg/dL (8-22); CALCIUM 9.3 mg/dL (8.8-10.2); CHLORIDE 105 mmol/L (98-107); COSMO 278; SODIUM 138 mmol/L (136-145); TCO2 19 mmol/L (25-35)
[2016-04-16] MEDS: LIALDA PO SCH (11:24)
[2016-04-16] MEDS: CARAFATE PO SCH ×3 (11:24→20:12)
--- NOTE | 2016-04-16 18:17 | PROGRESS NOTE ---
DATE: 04/16/2016 SUBJECTIVE: The patient is resting comfortably in bed. She has no complaints. OBJECTIVE: Vital Signs: Temperature 98, blood pressure 115/74, heart rate 72, respirations 20, O2 saturations 100% on room air. General: This is an elderly female, sitting up in bed, in no acute distress. Head: Normocephalic, atraumatic. Heart: S1, S2. Normal. Regular rate and rhythm. Lungs: Clear to auscultation bilaterally. No wheezing, no rales. No rhonchi. Abdomen: Positive bowel sounds. Soft, nontender, nondistended. Extremities: No edema. No cyanosis. Neurologic: The patient is alert and oriented x3. LABS: White blood cell count 9.7, hemoglobin 8.9, hematocrit 25, platelets 248. Sodium 138, potassium 4, chloride 105, CO2 of 19, BUN 19, creatinine 1.1. Glucose 99. ASSESSMENT AND PLAN: 1. Ulcerative colitis. The patient is on IV steroids. Further management as per the grain sacker. 2. Anemia. The patient's hemoglobin and hematocrit are stable after receiving 2 units of packed red blood cells. Hematology is following. 3. Sarcoidosis. Aware. 4. Acute kidney injury. Resolved. DISPOSITION: The patient will be discharged home once cleared by the preparator and grain sacker.
[2016-04-16] MEDS: NS 1,000 ML IV SCH (20:12)
[2016-04-17] MEDS: SOLU-MEDROL IV SCH ×3 (00:04→20:55)
[2016-04-17 06:32] LABS: HEMATOCRIT 27.5 % (37.0-47.0); HEMOGLOBIN 9.5 g/dL (12.0-16.0); MCHC 34.5 g/dL (33-37); MCV 81.1 FL (81-99); RBC 3.39 XMIL (4.2-5.4)
[2016-04-17 06:57] LABS: CALCIUM 9.4 mg/dL (8.8-10.2); POTASSIUM 4.7 mmol/L (3.5-5.1)
[2016-04-17] MEDS: SODIUM CHLORIDE 0.9% INJ SCH ×2 (08:30→20:54)
[2016-04-17] MEDS: LIALDA PO SCH (08:30)
[2016-04-17] MEDS: PROTONIX IV SCH ×2 (08:30→20:54)
[2016-04-17] MEDS: CARAFATE PO SCH ×4 (08:31→20:54)
[2016-04-17 10:32] LABS: HEPATITIS PROFILE ACUTE SEE COMMENTS (())
[2016-04-17] MEDS: NS 1,000 ML IV SCH (14:32)
[2016-04-17] MEDS ORDERED: 1/2 NS 1,000 ML IV SCH (15:00)
--- NOTE | 2016-04-17 15:40 | PROGRESS NOTE ---
DATE: 04/17/2016 SUBJECTIVE: The patient reports that she has had at least 6 loose stools overnight. She states that she still has a little bit of blood in her stools and she also complains of abdominal cramping. OBJECTIVE: Vital Signs: Temperature 98 degrees, blood pressure 111/59, heart rate 67, respirations 20, O2 saturations 99% on room air. General: This is an elderly female sitting in bed in no acute distress. Head: Normocephalic. Atraumatic. Heart: S1, S2. Normal. Regular rate and rhythm. Lungs: Clear to auscultation bilaterally. No wheezes, no rales. No rhonchi. Abdomen: Positive bowel sounds, soft, nontender, nondistended. Extremities: No edema. No cyanosis. No calf tenderness. Neuro: The patient is alert and oriented x3. LABS: White blood cell count 9.9, hemoglobin 9.5, hematocrit 27, platelets 262,000. Sodium 136, potassium 4.7, chloride 105, CO2 16, BUN 22, creatinine 1.2, glucose 142, magnesium 1.9. ASSESSMENT AND PLAN: 1. Ulcerative colitis flare up. The patient is currently on intravenous steroids. Will add IV Levaquin and IV Flagyl. Will also check the patient for C. difficile. This was discussed with Dr. Trevino. 2. Acute kidney injury. Resolved. Given the patient's copious amounts of diarrhea we will continue on IV fluid hydration. 3. Metabolic acidosis. Will start the patient on sodium bicarbonate drip. 4. Anemia. The patient's hemoglobin and hematocrit is improved and stable. 5. Deep vein thrombosis prophylaxis. Continue with SCDs. 6. The patient has been advised to ambulate as much as possible.
[2016-04-17] MEDS: FLAGYL 500 MG/NS 100 ML IV SCH ×2 (18:42→22:55)
[2016-04-17] MEDS: LEVAQUIN 750 MG in NS 150 ML IV SCH (18:43)
[2016-04-17] MEDS: SODIUM BICARBONATE 8.4% 100 MEQ in 1/2 NS 1,000 ML IV SCH (22:56)
[2016-04-18] MEDS: FLAGYL 500 MG/NS 100 ML IV SCH ×4 (04:03→23:34)
[2016-04-18 07:10] LABS: HEMATOCRIT 24.9 % (37.0-47.0); HEMOGLOBIN 8.7 g/dL (12.0-16.0); MCH 28.2 PG (27-31); MCHC 34.9 g/dL (33-37); MCV 80.8 FL (81-99); MPV 8.8 FL (7.4-10.4); RBC 3.08 XMIL (4.2-5.4)
[2016-04-18 07:33] LABS: AGAP 15; BUN 20 mg/dL (8-22); CALCIUM 9.4 mg/dL (8.8-10.2); CHLORIDE 105 mmol/L (98-107); COSMO 282; POTASSIUM 4.7 mmol/L (3.5-5.1); SODIUM 139 mmol/L (136-145); TCO2 19 mmol/L (25-35)
[2016-04-18] MEDS: SODIUM CHLORIDE 0.9% INJ SCH ×2 (08:42→23:34)
[2016-04-18] MEDS: LIALDA PO SCH (08:42)
[2016-04-18] MEDS: PROTONIX IV SCH ×2 (08:42→23:34)
[2016-04-18] MEDS: CARAFATE PO SCH ×4 (08:42→23:34)
--- NOTE | 2016-04-18 16:36 | PROGRESS NOTE ---
DATE: 04/18/2016 SUBJECTIVE: The patient had five episodes of diarrhea so far since 1:00 a.m. this morning. She states that the last two episodes have bright red blood in them. She also complains of abdominal pain following the bowel movement. She denies any nausea or vomiting. OBJECTIVE: Vital signs: Temperature 97.6, blood pressure 127/61, heart rate 62, respirations 16. O2 saturation is 99% on room air. General: This is an elderly female lying in bed in no acute distress. Head: Normocephalic, atraumatic. Heart: S1, S2 normal. Regular rate and rhythm. Lungs: Clear to auscultation bilaterally. No wheezing. No rales. No rhonchi. Abdomen: Positive bowel sounds, soft, nontender, nondistended. Extremities: No edema. No cyanosis. No calf tenderness. Neurologic: The patient is alert and oriented x3. LABORATORY: White blood cell count 13, hemoglobin 8.7, hematocrit 24, platelets 264, sodium 139, potassium 4.7, chloride 105, CO2 19, BUN 20, creatinine 1, glucose 132. ASSESSMENT AND PLAN: 1. Ulcerative colitis flare. Continue on IV Flagyl, IV Levaquin, and IV methylprednisolone. Will also continue with IV fluid hydration given the amount of diarrhea that the patient is currently having. 2. Leukocytosis. The patient is afebrile. This may steroid induced. We will monitor this closely. 3. Acute kidney injury. Resolved. 4. Metabolic acidosis. Improved. Continue on the IV fluid. 5. Anemia. The patient's hemoglobin and hematocrit did drop to 8.7 and 24. This may be secondary to blood loss in the patient's stool as well as IV fluid. Will continue to monitor this closely and transfuse p.r.n. 6. Deep venous thrombosis prophylaxis. Continue with sequential compression devices.
[2016-04-18] MEDS: LEVAQUIN 750 MG in NS 150 ML IV SCH (16:48)
[2016-04-18] MEDS: SODIUM BICARBONATE 8.4% 100 MEQ in 1/2 NS 1,000 ML IV SCH (17:47)
--- NOTE | 2016-04-18 18:02 | PROGRESS NOTE ---
DATE: 04/18/2016 PRIMARY COFFEE URN ATTENDANT: Dr. Trevino SUBJECTIVE: Patient currently is resting in chair. She had 3 bloody bowel movements so far today. She was able to tolerate her diet. She continues to have diarrhea. Vital signs: Temperature 97.6, pulse of 62, respiratory 16, blood pressure 127/61, saturating 99% on room air. General Appearance: Moderately nourished, sitting in chair, in no acute distress. HEENT: No pallor. No icterus. Neck: Supple. Abdomen: Mild discomfort and cramping in the left lower quadrant. No rebound or guarding. Bowel sounds are present. Extremities: No cyanosis, clubbing, and edema. Neurologic: Alert, awake, oriented. LABS: Hemoglobin and hematocrit is 8.7, 24.9, white count of 13.18, platelet count of 264,000, MCV of 80.8, sodium 139, potassium 4.7, chloride 105, bicarb 19, anion gap of 15 , BUN of 20, creatinine 1, glucose of 132, calcium 9.4, CRP is 2.2. Hepatitis panel is nonreactive. IMPRESSION AND PLAN: 1. Ulcerative colitis flare up. Continue on IV Flagyl, Levaquin, and increase the Solu-Medrol to 40 IV b.i.d. as she has continued to have bloody diarrhea with dropping hematocrit. Will type and cross, and transfuse as needed to keep hematocrit more than 23%. We will continue IV fluids for now. 2. We will start her on Iron C b.i.d. and multivitamin b.i.d. for anemia. 3. We will continue on GI prophylaxis with Protonix b.i.d. 4. Further recommendations to follow pending the hospital course. Discussed the plan with the patient and answered all questions. [facility]
[2016-04-18] MEDS: PREDNISONE PO SCH (18:33)
[2016-04-18] MEDS: ICAR-C PO SCH ×2 (18:33→23:34)
[2016-04-18] MEDS: SOLU-MEDROL IV SCH (18:33)
[2016-04-18] MEDS: CENTRUM SILVER PO SCH (23:33)
[2016-04-19] MEDS: FLAGYL 500 MG/NS 100 ML IV SCH ×4 (03:17→23:51)
[2016-04-19] MEDS: SODIUM BICARBONATE 8.4% 100 MEQ in 1/2 NS 1,000 ML IV SCH ×2 (05:07→23:51)
[2016-04-19] MEDS: SOLU-MEDROL IV SCH ×2 (05:08→17:55)
[2016-04-19 07:07] LABS: HEMATOCRIT 25.2 % (37.0-47.0); HEMOGLOBIN 8.9 g/dL (12.0-16.0); IMM GRAN# 0.02 X1000 (0.0-0.04); IMM GRAN% 0.2 % (0.0-0.5); LYMPH# 0.79 X1000 (1.2-3.4); LYMPH% 6.9 % (20.5-51.1); MANUAL DIFF NEEDED? YES; MCH 28.1 PG (27-31); MCHC 35.3 g/dL (33-37); MCV 79.5 FL (81-99); MONO# 0.15 X1000 (0.11-0.59); MONO% 1.3 % (1.7-9.3); MPV 9.3 FL (7.4-10.4); NEUT% 91.6 % (42.2-75.2); PLT 286 X1000 (130-400); RBC 3.17 XMIL (4.2-5.4)
[2016-04-19 07:16] LABS: AGAP 12; BUN 20 mg/dL (8-22); CALCIUM 9.3 mg/dL (8.8-10.2); CHLORIDE 104 mmol/L (98-107); COSMO 283; POTASSIUM 4.2 mmol/L (3.5-5.1); SODIUM 140 mmol/L (136-145); TCO2 24 mmol/L (25-35)
[2016-04-19 07:48] LABS: BANDS 4 % (0-1); LYMPHS 6 % (21-51); MONO 2 % (1-9)
[2016-04-19] MEDS: CARAFATE PO SCH ×4 (08:57→23:51)
[2016-04-19] MEDS: PREDNISONE PO SCH (08:58)
[2016-04-19] MEDS: PROTONIX IV SCH ×2 (08:58→23:51)
[2016-04-19] MEDS: ICAR-C PO SCH ×2 (08:59→23:51)
[2016-04-19] MEDS: CENTRUM SILVER PO SCH ×2 (08:59→23:50)
[2016-04-19] MEDS: LIALDA PO SCH (08:59)
[2016-04-19 09:02] LABS: SED RATE 30 mm/hr (0-20)
--- NOTE | 2016-04-19 13:58 | PROGRESS NOTE ---
DATE: 04/19/2016 SUBJECTIVE: The patient reports that she had 3 bloody loose stools last night. So far, this morning she has had 2 bowel movements. She states that she has been ambulating in the hallways. She still has abdominal pain after having her bowel movements. OBJECTIVE: Vital Signs: Temperature 98 degrees, blood pressure 130/67, heart rate 55, respirations 18, O2 saturations 100% on room air. General: This is an elderly female, sitting in a chair, in no acute distress. Head: Normocephalic atraumatic. Heart: S1, S2 normal. Regular rate and rhythm. Lungs: Clear to auscultation bilaterally. No wheezes, no rales, no rhonchi. Abdomen: Positive bowel sounds. Soft. Generalized tenderness. Extremities: No edema. No cyanosis. No calf tenderness. Neurologic: The patient is alert and oriented x3. No focal neurologic deficits noted. LABS: White blood cell count 11, hemoglobin 8.9, hematocrit 25, platelets 286,000. Sodium 140, potassium 4.2, chloride 104, CO2 24, BUN 20, creatinine 1, glucose 118. ASSESSMENT AND PLAN: 1. Ulcerative colitis flare. Continue on IV antibiotics, IV steroids, and IV fluids. Further recommendations to follow from the mammography technologist. 2. Leukocytosis. Improved. Continue on the IV antibiotic therapy. 3. Anemia of acute blood loss. The patient's hemoglobin and hematocrit is stable. Will continue to monitor this closely and transfuse p.r.n. 4. Deep vein thrombosis prophylaxis. Continue with SCDs. The patient has also been encouraged to ambulate as much as possible.
[2016-04-19] MEDS: LEVAQUIN 750 MG in NS 150 ML IV SCH (16:54)
--- NOTE | 2016-04-19 20:57 | PROGRESS NOTE ---
DATE: 04/19/2016 PRIMARY BARBER TOOL SHARPENER: Dr. Trevino. SUBJECTIVE: Patient resting in bed. Her family present at bedside. Her diarrhea and rectal bleeding is slowing down. She had 1 liquid bowel movement which had some old blood mixed with it. She was eating better. OBJECTIVE: Vitals: Temperature 98.2 degrees, pulse rate 62, respiratory 18, blood pressure 132/70, saturating 100% room air. General Appearance: Moderately nourished sitting in bed in no acute distress. HEENT: Pale conjunctivae, no icterus. Neck: Is supple. Abdomen: Obese, soft, nontender, nondistended. Bowel sounds. No guarding. Extremities: No cyanosis, clubbing. Neuro: Alert, awake, oriented. LABS: Hemoglobin and hematocrit is 8.9 and 25.2, white count 11.46, platelet count of 286,000. Sodium 140, potassium 4.2, chloride 104, bicarb 24, anion gap 12, BUN of 20, creatinine 1, glucose of 118, calcium 9.3, CRP is 2.2. stool lactoferrin is positive and hepatitis panel is nonreactive. IMPRESSION: 1. Ulcerative colitis flare. Continue IV antibiotics, IV steroids, IV fluids, will continue to watch. 2. Anemia. Patient had been taking Goody in BC powders at home. She could have some underlying peptic ulcer disease. In that regard she will continue on Protonix for now. Will start her on iron and multivitamin. 3. Obesity 4. Dr. Trevino will return tomorrow. The above plan of care discussed with the patient and family. [facility]
[2016-04-19] MEDS: SODIUM CHLORIDE 0.9% INJ SCH (23:51)
[2016-04-20] MEDS: SOLU-MEDROL IV SCH (04:12)
[2016-04-20] MEDS: FLAGYL 500 MG/NS 100 ML IV SCH ×3 (04:12→15:48)
[2016-04-20 07:03] LABS: CALCIUM 9.2 mg/dL (8.8-10.2); HEMATOCRIT 24.5 % (37.0-47.0); HEMOGLOBIN 8.7 g/dL (12.0-16.0); IMM GRAN# 0.04 X1000 (0.0-0.04); IMM GRAN% 0.3 % (0.0-0.5); LYMPH% 6.2 % (20.5-51.1); MANUAL DIFF NEEDED? YES; MCH 28.1 PG (27-31); MCHC 35.5 g/dL (33-37); MONO# 0.25 X1000 (0.11-0.59); MONO% 1.9 % (1.7-9.3); MPV 9.1 FL (7.4-10.4); NEUT% 91.6 % (42.2-75.2); PLT 305 X1000 (130-400)
[2016-04-20 07:22] LABS: BANDS 2 % (0-1); LYMPHS 6 % (21-51); MONO 2 % (1-9)
[2016-04-20] MEDS: CARAFATE PO SCH ×3 (08:04→13:11)
[2016-04-20] MEDS: SODIUM CHLORIDE 0.9% INJ SCH (08:04)
[2016-04-20] MEDS: CENTRUM SILVER PO SCH (08:04)
[2016-04-20] MEDS: PROTONIX IV SCH (08:04)
[2016-04-20] MEDS: LIALDA PO SCH (08:04)
[2016-04-20] MEDS: ICAR-C PO SCH (08:04)
[2016-04-20 08:07] LABS: SED RATE 10 mm/hr (0-20)
[2016-04-20] MEDS: SODIUM BICARBONATE 8.4% 100 MEQ in 1/2 NS 1,000 ML IV SCH (15:49)
[2016-04-20 16:03] VITALS: BP 126/66
--- NOTE | 2016-04-21 10:54 | DISCHARGE SUMMARY ---
ADMISSION DATE: 04/13/2016 DISCHARGE DATE: 04/20/2016 DISCHARGE DIAGNOSES: 1. Ulcerative colitis exacerbation. 2. Anemia of chronic inflammation. 3. Dehydration. CONSULTATIONS: 1. Dr. Trevino and Dr. Corrigan. 2. Dr. Sowmya Cobb for Remicade infusions. HISTORY AND HOSPITAL COURSE: Briefly, this is a lady with a history of GI bleeds and UC, she was found to be hypotensive in the office. Hemoglobin was very low, around 5-6, and she was admitted for treatment. Creatinine also at 2.3. I do not have a list of her home medications but I think she had been on a diuretic. She was transfused I believe 2 units and her hemoglobin and hematocrit went up to 9.5 and 27.5. Has decreased at 8.7 and 24.9 but is held that for about 3 days. Essentially after transfusion she went up to 8.5 and 24.6 and she has been here since the . Her hemoglobin and hematocrit have not gone down very much. She has had some intermittent rectal bleeding but again no drop in her hemoglobin and hematocrit and that is resolved on the day of discharge. Her white count is right around 12.9. She has been on steroids, Levaquin, and Flagyl. I do not think she has had any instrumentation since she has been here. There was some discussion of endoscopy. CT scan showed possibility of low-level colitis. She does have a history of sarcoid as well. But in any case, plans were made to discharge her with follow up with Dr. Trevino closely. I discussed the case briefly with her prior to discharge and Dr. Cobb for outpatient Remicade infusions. DISCHARGE MEDICATIONS: I will discharge her on current medications. Carafate 1 g q.i.d., Lialda 4.8 daily, Flagyl 500 t.i.d. for another 4 days, Levaquin 500 daily for another 4 days, and prednisone will be 40 daily until she follows up with Dr. Cobb for Remicade and then they will deescalate her prednisone dosing at that time. DISCHARGE CONDITION: Stable. FOLLOWUP: Recommend follow up with her PCP in 1 week for blood pressure check and hemoglobin and hematocrit check. Her PCP is Dr. Hancock. Follow up with Dr. Cobb for Remicade infusion. Follow up with Dr. Trevino in 1-2 weeks for UC maintenance. TIME SPENT: 32 minute discharge.
== END 2016-04-20 16:45 | disposition home or self-care (01) | DRG 386 ==
LOC: ED 10:08 → 3N 15:52 → EDIPHOLD 15:52 → DIRADM 04-17 10:15 → 3N 04-17 10:26
PROVIDERS: ATTEND Internal Medicine
PROC: 30233N1 Transfusion of Nonautologous Red Blood Cells into Peripheral Vein, Percutaneous Approach (ICD-10-PCS; principal; 2016-04-13)
DX: K51.90 Ulcerative colitis, unspecified, without complications (principal); N17.9 Acute kidney failure, unspecified; I95.9 Hypotension, unspecified; E87.2 Acidosis; D62 Acute posthemorrhagic anemia; I10 Essential (primary) hypertension; D86.0 Sarcoidosis of lung; K29.70 Gastritis, unspecified, without bleeding; E86.0 Dehydration; K21.9 Gastro-esophageal reflux disease without esophagitis; M19.90 Unspecified osteoarthritis, unspecified site; E66.9 Obesity, unspecified; Z79.899 Other long term (current) drug therapy; Z79.52 Long term (current) use of systemic steroids; Z87.11 Personal history of peptic ulcer disease; Z68.36 Body mass index [BMI] 36.0-36.9, adult; Z82.49 Family history of ischemic heart disease and other diseases of the circulatory system
CPT/HCPCS: 36415; 71020; 74176; 76770; 80048; 80053; 80069; 80074; 81001; 82272; 82436; 82533; 82550; 82570; 83630; 83735; 83880; 83935; 84156; 84300; 84439; 84443; 84484; 84540; 85025; 85027; 85045; 85379; 85610; 85651; 86140; 86141; 86850; 86900; 86901; 86920; 87088; 87205; 87324; 87449; 89055; 93005; 93306; 99285; C9113; J2920; J7030; J7512; P9016; P9612; S0030; S0164

== ENCOUNTER 2016-06-05 11:56 | Inpatient (IN) ==
[2016-06-05] MEDS ORDERED: REGLAN IV ONE (13:24)
[2016-06-05] MEDS ORDERED: PHENERGAN IV ONE (13:24)
[2016-06-05] MEDS ORDERED: SODIUM CHLORIDE 0.9% INJ ONE (13:24)
[2016-06-05] MEDS ORDERED: TORADOL IV ONE (13:25)
--- NOTE | 2016-06-05 13:31 | EKG Report ---
Test Performed on : 06/05/2016 12:23:08 PM Test Reason : Chest Pain Blood Pressure : / mmHG Vent. Rate : 086 BPM Atrial Rate : 086 BPM P-R Int : 178 ms QRS Dur : 090 ms QT Int : 372 ms P-R-T Axes : 032 007 022 degrees QTc Int : 445 ms Normal sinus rhythm. Minimal voltage criteria for LVH, may be normal variant Inferior infarct (cited on or before 13-APR-2016) Possible Anterior infarct , age undetermined Abnormal ECG When compared with ECG of 13-APR-2016 14:09, Borderline criteria for Anterior infarct are now present Unconfirmed Result
--- NOTE | 2016-06-05 13:35 | PROVIDER DOCUMENTATION ---
This chart was entered by Mahi Harrison Scribe, acting as scribe for Halie Dotson MD. HPI-Chest Pain - General Chief Complaint: Chest Pain Stated Complaint: chest pain Time Seen by Provider: 06/05/16 12:55 Source: patient Allergies/Adverse Reactions: Patient Allergies Allergy/AdvReac Type Severity Reaction Status Date / Time No Known Allergies Allergy Verified 06/05/16 12:45 Home Medications: Home Medication List Medication Instructions Recorded Confirmed Last Taken Type Mesalamine D.r. [Lialda] 4.8 gm PO DAILY #112 tablet 01/31/16 06/05/16 06/04/16 Rx Sucralfate [Carafate] 1 gm PO 4XDAY #120 tablet 01/31/16 06/05/16 05/30/16 Rx Esomeprazole [Nexium] 40 mg PO DAILY 06/05/16 06/05/16 06/04/16 22:00 History Prednisone 30 mg PO 06/05/16 06/05/16 09:50 History - History of Present Illness-CP Nature of Presenting Problem: Pt is 55 y/o F presents to the ED with chest pain. PT states chest pain radiates to L arm. Pt states woke this am with N and V and went to Dr. Trevino's office then started to have chest pain. Location: reports: central Chest Pain Radiation: reports: arms (L) Quality of Pain: reports: aching Severity in ED: mild Onset/Duration: just prior to arrival Timing: still present Context/Activities at Onset: reports: light activity Modifying Factors: improves with: nothing Associated Symptoms: reports: nausea, vomiting. denies: abdominal pain, back pain, diaphoresis, dizziness, edema, fatigue, fever/chills, headache, heartburn , rash, shortness of breath, swelling/lump in chest, syncope, weakness Nitro Today/Relief: no nitro taken today Aspirin Treatment Today: no aspirin today Prior Chest Pain/Cardiac Workup: reports: cardiac cath Similar Symptoms Previously?: No Recently Seen Here or By Another Healthcare Provider: No Review of Systems - Adult - REVIEW OF SYSTEMS - ADULT Constitutional: reports: no symptoms reported Eyes: reports: no symptoms reported Ears, Nose, Mouth & Throat: reports: no symptoms reported Cardiovascular: reports: chest pain. denies: heart murmur, irregular heart rate Respiratory: reports: no symptoms reported Gastrointestinal: reports: nausea, vomiting. denies: abdominal pain, diarrhea Genitourinary: reports: no symptoms reported Musculoskeletal: reports: no symptoms reported Integumentary: reports: no symptoms reported Neurological: reports: no symptoms reported Psychiatric: reports: no symptoms reported Endocrine: reports: no symptoms reported Hematologic/Lymphatic: reports: no symptoms reported Allergic/Immunologic: reports: no symptoms reported All Other Systems: Reviewed and Negative Past History - Adult - PAST MEDICAL HISTORY-ADULT Review of Records: reports: Nursing Assessment Review, Medications Reviewed, Social history reviewed & non-contributory. Major Childhood Illnesses: reports: denies history Cardiovascular: reports: HTN Respiratory: reports: other (sarcoidosis) Gastrointestinal: reports: GERD Obstetrical/Gynecological: reports: denies history Genitourinary: reports: kidney disease (acute) Musculoskeletal: reports: arthritis Neurological: reports: denies history Endocrine/Immune: reports: denies history Other Conditions: reports: denies history Additional History: renal failure - PRIOR SURGERIES/PROCEDURES Surgical/Procedure History: reports: hysterectomy, - PRIOR HOSPITALIZATIONS Prior Hospitalizations: reports: for other non-related - IMMUNIZATION STATUS Childhood Immunizations: See Nurse Assessment Flu Vaccine: See Nurse Assessment - FAMILY HISTORY Family History: reviewed, not pertinent - SOCIAL HISTORY Smoking: denies Substance Use: denies Living Situation: family Physical Exam-General - PHYSICAL EXAM-ADULT Initial Vital Signs Reviewed: Yes - CONSTITUTIONAL General Appearance: appears well, alert, no apparent distress - EYES Eyes: PERRL/EOMI, pink conjunctivae - HEAD, EARS, NOSE, MOUTH & THROAT HENMT: normocephalic/atraumatic, moist mucous membranes, normal ENT inspection, TMs normal, pharynx normal - NECK Neck: non-tender, full range of motion, supple, normal inspection - RESPIRATORY Respiratory: chest non-tender, lungs clear, normal breath sounds, no pleuratic chest pain, no respiratory distress, no accessory muscle use - CARDIOVASCULAR Cardiovascular: normal peripheral pulses, regular rate, rhythm, no edema, no gallop, no JVD, no murmur - GASTROINTESTINAL (ABDOMEN) Abdominal Exam: normal bowel sounds, non tender, soft, no organomegaly, no pulsatile mass - LYMPHATIC Lymphatic: no adenopathy - MUSCULOSKELETAL Back Exam: normal inspection, no CVA tenderness, no vertebral tenderness Extremity: normal range of motion, non-tender, normal gait, normal inspection, no pedal edema, no calf tenderness, normal capillary refill, pelvis stable - SKIN Integumentary: normal color, normal turgor, warm/dry - NEUROLOGIC Neurologic: grossly normal - PSYCHIATRIC Psych/Mental Status: normal mood/affect, oriented x 3 Progress - PLAN OF CARE/RESULTS Progress/Plan/Lab Results: Vital Signs - 8 hr 06/05/16 12:33 Temperature 98.2 F Pulse Rate 87 Respiratory Rate 16 Blood Pressure 124/75 O2 Sat by Pulse Oximetry 98 Laboratory Results - last 24 hr 06/05/16 06/05/16 06/05/16 13:34 13:34 13:34 WBC 27.25 H RBC 3.63 L Hgb 10.0 L Hct 28.3 L MCV 78.0 L MCH 27.5 MCHC 35.3 RDW Std Deviation 15.9 H Plt Count 266 MPV 10.5 H Immature Gran % (Auto) 0.2 Neut % (Auto) 93.5 H Lymph % (Auto) 2.2 L Blanco % (Auto) 3.9 Eos % (Auto) 0.1 Baso % (Auto) 0.1 Immature Gran # (Auto) 0.06 H Neut # (Auto) 25.51 H Lymph # (Auto) 0.59 L Blanco # (Auto) 1.05 H Eos # (Auto) 0.02 Baso # (Auto) 0.02 PT INR PTT (Actin FS) Sodium 142 Potassium 3.2 L Chloride 103 Carbon Dioxide 22 L Anion Gap 17 BUN 11 Creatinine 0.8 Estimated GFR/1.73 m2 > 60 BUN/Creatinine Ratio 14 Glucose 121 H Calculated Osmolality 284 Calcium 8.7 L Magnesium 1.8 Total Bilirubin 1.24 H AST 17 ALT 12 Alkaline Phosphatase 59 Creatine Kinase 62 Troponin T [id number]-Ekmkyzkdkdh Pept 86 Total Protein 6.7 Albumin 4.2 Globulin 2.5 Albumin/Globulin Ratio 1.7 06/05/16 06/05/16 13:34 13:34 WBC RBC Hgb Hct MCV MCH MCHC RDW Std Deviation Plt Count MPV Immature Gran % (Auto) Neut % (Auto) Lymph % (Auto) Blanco % (Auto) Eos % (Auto) Baso % (Auto) Immature Gran # (Auto) Neut # (Auto) Lymph # (Auto) Blanco # (Auto) Eos # (Auto) Baso # (Auto) PT 10.9 INR 1.04 PTT (Actin FS) 20.8 L Sodium Potassium Chloride Carbon Dioxide Anion Gap BUN Creatinine Estimated GFR/1.73 m2 BUN/Creatinine Ratio Glucose Calculated Osmolality Calcium Magnesium Total Bilirubin AST ALT Alkaline Phosphatase Creatine Kinase Troponin T < 0.010 Rbt-O-Ihrniqqpfvy Pept Total Protein Albumin Globulin Albumin/Globulin Ratio Orders Category Date Time Status Cardiac Monitoring DIRECTED Care 06/05/16 13:23 Active Oxygen Therapy- ED Nursing DIRECTED Care 06/05/16 13:23 Active Saline Loc NOW Care 06/05/16 13:23 Active CHEST-2 VIEWS [RAD] Stat Exams 06/05/16 13:23 Draft BLOOD CULTURE [BLDCUL] Stat Lab 06/05/16 14:10 Ordered CBC WITH ELECTRONIC DIFF [HEME] Stat Lab 06/05/16 13:34 Completed CK PROFILE [SP CHEM] Stat Lab 06/05/16 13:34 Completed COMPREHENSIVE METABOLIC PANEL [CHEM] Stat Lab 06/05/16 13:34 Completed MAGNESIUM [CHEM] Stat Lab 06/05/16 13:34 Completed PRO B-NATRIURETIC PEPTIDE Stat Lab 06/05/16 13:34 Completed PROTIME WITH INR [COAG] Stat Lab 06/05/16 13:34 Completed PTT [COAG] Stat Lab 06/05/16 13:34 Completed TROPONIN T Stat Lab 06/05/16 13:34 Completed Azithromycin 500 mg/Ns [Zithromax 500 mg/Ns] Med 06/05/16 14:13 Active 500 mg in 250 ml IV NOW CefTRIAXONE 1 GM/NS [Rocephin 1 gm/Ns] Med 06/05/16 14:10 Active 1 gm in 50 ml IV NOW Ketorolac [Toradol] Med 06/05/16 13:25 Discontinued 30 mg IV NOW ONE Metoclopramide [Reglan] Med 06/05/16 13:24 Discontinued 10 mg IV NOW ONE Promethazine [Phenergan] Med 06/05/16 13:24 Discontinued 12.5 mg IV NOW ONE Sodium Chloride 0.9% Med 06/05/16 13:24 Discontinued 10 ml INJ NOW ONE EKG [EKG] Stat Ther 06/05/16 13:23 Draft Result Diagrams: 06/05/16 13:34 06/05/16 13:34 - XRAY 1 XRAY: Bilateral XRAY Study: Chest Impression: Abnormal XRAY Interpretation: RUL pneumonia; CMG ([facility]) - CONSULTS/PCP/HOSPITALIST Notification #1 *Consult/PCP/Hospitalist*: Dr. Presley Time Discussed: 14:31 (Dr. Presley accepted ) Reason/Comments: Dr. Dotson consulted with Dr. Presley about admit of Pt Consult Disposition: Admit Departure - Departure Time of Disposition Decision: 14:33 DIAGNOSIS: Pneumonia Qualifiers: Pneumonia type: due to unspecified organism Laterality: right Lung location: upper lobe of lung Qualified Code(s): J18.1 - Lobar pneumonia, unspecified organism Disposition: ADMITTED INPATIENT 09 Certified Medical Emergency: Emergent Condition: Stable Additional Freetext Instructions: ED Follow Up Instructions: You have been treated by a care provider in the Emergency Department. These instructions are being provided to you so you can have an understanding of how to care for yourself upon discharge. Upon discharge from the Emergency Department, you are responsible for making arrangements for follow-up care by a physician of your choice. Take all prescribed medications as directed. Return to the Emergency Department immediately for any new or worsening symptoms. You may call the Physician Referral phone number at [phone] to obtain a list of Physicians who are taking new patients. Referrals and Follow-Ups: Brant Hancock MD [Primary Care Provider] - This chart was documented by the indicated scribe, (Mahi Harrison Scribe) and accurately reflects the services I performed and decisions made by me, Halie Dotson MD, as attested by the provider's signature.
[2016-06-05 14:02] LABS: INR 1.04; PROTIME 10.9 Seconds (9.2-11.7); PTT 20.8 Seconds (22.0-36.0)
[2016-06-05 14:04] LABS: BASO% 0.1 % (0.0-0.8); EOS# 0.02 X1000 (0.0-0.7); EOS% 0.1 % (0.0-10.0); HEMATOCRIT 28.3 % (37.0-47.0); IMM GRAN# 0.06 X1000 (0.0-0.04); IMM GRAN% 0.2 % (0.0-0.5); LYMPH# 0.59 X1000 (1.2-3.4); LYMPH% 2.2 % (20.5-51.1); MANUAL DIFF NEEDED? NO; MCH 27.5 PG (27-31); MCHC 35.3 g/dL (33-37); MONO# 1.05 X1000 (0.11-0.59); MONO% 3.9 % (1.7-9.3); MPV 10.5 FL (7.4-10.4); NEUT% 93.5 % (42.2-75.2); PLT 266 X1000 (130-400); RBC 3.63 XMIL (4.2-5.4)
[2016-06-05] MEDS ORDERED: ROCEPHIN 1 GM/NS 1 GM/50 ML IVPB IV ONE (14:10)
[2016-06-05] MEDS ORDERED: ZITHROMAX 500 MG/NS 500 MG/250 ML IVPB IV ONE (14:13)
[2016-06-05 14:22] LABS: AGAP 17; ALBUMIN 4.2 g/dL (3.5-5.0); ALKALINE PHOSPHATASE 59 U/L (32-104); BUN 11 mg/dL (8-22); CALCIUM 8.7 mg/dL (8.8-10.2); CHLORIDE 103 mmol/L (98-107); CK PROFILE 62 U/L (24-173); COSMO 284; GOT 17 U/L (10-30); GPT 12 U/L (10-36); MAGNESIUM 1.8 mg/dL (1.5-2.7); POTASSIUM 3.2 mmol/L (3.5-5.1); SODIUM 142 mmol/L (136-145); TCO2 22 mmol/L (25-35); TOTAL BILIRUBIN 1.24 mg/dL (0.20-1.00); TOTAL PROTEIN 6.7 g/dL (6.3-8.3)
--- NOTE | 2016-06-05 14:32 | Diag Imaging Result Document ---
PROCEDURE NAME: CHEST-2 VIEWS - 06/05/2016 CHEST X-RAY, 2 VIEWS: COMPARISON: 04/13/2016. FINDINGS: There is new right upper lobe infiltrate compatible with pneumonia. There is increasing cardiomegaly. No pneumothorax or pleural effusion. IMPRESSION: 1. Right upper lobe pneumonia. 2. Cardiomegaly.
--- NOTE | 2016-06-05 14:52 | ED EKG INTERP ---
This chart was entered by Mahi Harrison Scribe, acting as scribe for Halie Dotson MD. EKG Interpretation - EKG Time of EKG reading by physician:: 12:23 EKG Read and Signed by:: Halie Dotson EKG Interpretation (*Must complete 3 of following elements*): Abnormal ( inferior infarct, age undetermined; possible interior infacrt, age undetermined) Rate: 86 Rhythm: normal sinus rhythm Comments: minimal voltage criteria for LVH, may be normal variant This chart was documented by the indicated scribe, (Mahi Harrison Scribe) and accurately reflects the services I performed and decisions made by , Halie Dotson MD, as attested by the provider's signature.
[2016-06-05] MEDS ORDERED: SOLU-MEDROL IV ONE (15:12)
--- NOTE | 2016-06-05 16:02 | HISTORY AND PHYSICAL ---
HISTORY OF PRESENT ILLNESS: This is a 55-year-old with a significant past history for sarcoidosis diagnosed in 2013, apparently ulcerative colitis diagnosed [address] Trevino follows her for her ulcerative colitis. Dr. Trimble is following her for her sarcoidosis. She is on routine prednisone 30 mg a day. She reports that she was feeling fine until about 3:30 this morning, woke up with nausea, had to run to the bathroom and threw up. She said there was emesis coming out of her nose. She does not feel like she aspirated any, but she just has felt terrible since that time. She has had some pain in her left arm and left leg, but the main thing was shortness of breath. PAST MEDICAL HISTORY/MEDICATIONS: She apparently has had a history of some gastroesophageal reflux, the ulcerative colitis. She is on mesalamine 4.8 grams daily. Prednisone, actually she is on 30 mg a day, and Carafate 1 gram 4 times a day. She also has iron deficiency anemia. She sees Dr. Sowmya Cobb. I think she has had some iron infusions. ALLERGIES: No known drug allergies. FAMILY HISTORY: A large family, one of nine kids. SOCIAL HISTORY: Negative for alcohol or tobacco. She used to work at the [employer] for years. PHYSICAL EXAMINATION: VITAL SIGNS: Temperature 98.2 degrees, pulse 87, respirations 16, blood pressure 124/75. HEENT AND NECK: Pupils are equal and round. CVP less than 6 cm. No distended neck veins. LUNGS: Clear anterolateral. Some rhonchi in the right mid lung, lateral. CARDIOVASCULAR: Regular rhythm and rate without murmur or S3. ABDOMEN: Soft. SKIN: Warm and dry. HEIGHT AND WEIGHT: Height 5 feet 4 inches. Weight 218 pounds. EXTREMITIES: No pedal edema. LABORATORY DATA: White blood cell count 27,250, hematocrit 28, platelet count 266,000. Sodium 144, potassium 3.2, chloride 103, bicarbonate 22, BUN 11, creatinine 0.8, blood sugar 121. Magnesium was 1.8. Liver functions unremarkable. Albumin 4.2. Prothrombin time 10.9, PTT 20.8. Chest x-ray, right upper lobe pneumonia and cardiomegaly appreciated. ASSESSMENT AND PLAN: 1. Right upper lobe pneumonia, it is community acquired. She is taking a significant amount of prednisone every day, so she is immunocompromised. She is taking 30 mg a day, so I think we have to assume that she has adrenal insufficiency as well. We will put her on Solu-Medrol, load her with 125 mg and give her 80 mg IV every 8 hours. We will treat her with Levaquin and Rocephin. I suspect this is pneumococcal, but we will cover for other and increase her gram- negative coverage. 2. Sarcoidosis, aware, which has been pretty stable by report. 3. Ulcerative colitis, aware. Continue her mesalamine. 4. History of gastroesophageal reflux. Continue Nexium. 5. Apparently, she has had gastritis and irritation in her stomach. Continue her Carafate 1 gram 4 times a day. 6. We will follow up with a chest x-ray again on Wednesday morning. We will check a CBC and basic metabolic and magnesium in the morning. We will also check T4 and TSH, B12 and folate. We will send sputum for culture, make sure she has some blood cultures that are sent as well. cc: Hakan Presley MD
[2016-06-05] MEDS ORDERED: TYLENOL PO PRN (16:31)
[2016-06-05] MEDS: DUONEB (A & A) INH SCH ×2 (17:07→21:57)
[2016-06-05] MEDS: LEVAQUIN 750 MG/D5W 750 MG/150 ML IVPB IV SCH (18:12)
[2016-06-05] MEDS: NS 1,000 ML IV SCH (18:14)
[2016-06-05] MEDS: CARAFATE PO SCH ×2 (18:16→21:25)
[2016-06-05] MEDS: SOLU-MEDROL IV SCH ×2 (21:26→22:40)
[2016-06-05] MEDS: SYMBICORT 160/4.5 MICROGM INHALER INH SCH (21:57)
[2016-06-06] MEDS: DUONEB (A & A) INH SCH ×4 (03:36→21:14)
[2016-06-06] MEDS: SOLU-MEDROL IV SCH ×3 (06:12→20:39)
[2016-06-06] MEDS: NS 1,000 ML IV SCH ×3 (06:12→18:39)
[2016-06-06 06:16] LABS: BASO% 0.1 % (0.0-0.8); HEMATOCRIT 26.5 % (37.0-47.0); HEMOGLOBIN 9.5 g/dL (12.0-16.0); IMM GRAN# 0.04 X1000 (0.0-0.04); IMM GRAN% 0.2 % (0.0-0.5); LYMPH# 0.36 X1000 (1.2-3.4); MANUAL DIFF NEEDED? YES; MCH 27.8 PG (27-31); MCHC 35.8 g/dL (33-37); MCV 77.5 FL (81-99); MONO% 0.6 % (1.7-9.3); MPV 9.4 FL (7.4-10.4); NEUT% 97.1 % (42.2-75.2); PLT 282 X1000 (130-400); RBC 3.42 XMIL (4.2-5.4)
[2016-06-06 06:26] LABS: AGAP 16; ALBUMIN 3.7 g/dL (3.5-5.0); ALKALINE PHOSPHATASE 55 U/L (32-104); BUN 15 mg/dL (8-22); CALCIUM 8.6 mg/dL (8.8-10.2); CHLORIDE 107 mmol/L (98-107); COSMO 290; GOT 11 U/L (10-30); GPT 11 U/L (10-36); POTASSIUM 3.3 mmol/L (3.5-5.1); SODIUM 143 mmol/L (136-145); TCO2 20 mmol/L (25-35); TOTAL BILIRUBIN 0.65 mg/dL (0.20-1.00); TOTAL PROTEIN 6.8 g/dL (6.3-8.3)
[2016-06-06 06:32] LABS: BANDS 10 % (0-1); LYMPHS 2 % (21-51)
[2016-06-06 06:53] LABS: FREE T4 1.06 ng/dL (0.93-1.70)
[2016-06-06] MEDS: LIALDA PO SCH (09:48)
[2016-06-06] MEDS: CARAFATE PO SCH ×4 (09:50→20:39)
[2016-06-06] MEDS: NEXIUM PO SCH (09:50)
[2016-06-06] MEDS: SYMBICORT 160/4.5 MICROGM INHALER INH SCH ×2 (10:05→19:21)
[2016-06-06] MEDS ORDERED: KLOR-CON PO ONE (10:33)
--- NOTE | 2016-06-06 11:28 | PROGRESS NOTE ---
DATE: 06/06/2016 SUBJECTIVE: Ms. Sharma is a 55-year-old female. She is in no acute distress and states that she feels much better today. She has no complaints. OBJECTIVE: Vital Signs: Temperature is 97.8 degrees, heart rate 84, respiratory rate 17, blood pressure 149/74, O2 saturation 98% on room air. General: Ms. Sharma is a 55-year-old female. She is in no acute distress and is able answer all questions appropriately. Cardiovascular: S1 and S2. Regular rate and rhythm. No rubs, gallops, or murmurs. Pulmonary: Clear to auscultation. Bilateral breath sounds. No accessory muscle use or work of breathing noted. Decreased in the bases. Currently on room air. Gastrointestinal: Soft, nontender, nondistended. Positive bowel sounds x4. LABORATORY DATA: White blood cells 18,000, hemoglobin 9.5, hematocrit 26.5, platelet count 282,000. Sodium 143, potassium 3.3, BUN 15, creatinine 0.9, glucose 174, calcium 8.6, bilirubin 0.65, AST 11, ALT 11. B12 436, folate 12, TSH 0.32, and free T4 is 1.36. IMAGING: None. ASSESSMENT AND PLAN: 1. Community-acquired right upper lobe pneumonia. She takes prednisone at home. We continued her on Solu-Medrol 80 mg IV q.8 hours here, nebulizers, Levaquin, Rocephin. 2. Sarcoidosis, stable. Continue steroids. 3. Ulcerative colitis, stable. Continue mesalamine, Carafate, and steroids. 4. Gastroesophageal reflux disease. Continue Nexium. 5. History of gastritis and will continue Carafate. Dictated by CANDIDA Cohen for Hakan Presley MD cc: CANDIDA Cohen MD
[2016-06-06] MEDS: ROCEPHIN 1 GM/NS 1 GM/50 ML IVPB IV SCH (13:51)
[2016-06-06] MEDS: LEVAQUIN 750 MG/D5W 750 MG/150 ML IVPB IV SCH (16:57)
[2016-06-07] MEDS: DUONEB (A & A) INH SCH ×4 (03:34→21:03)
[2016-06-07 06:25] LABS: HEMATOCRIT 26.9 % (37.0-47.0); HEMOGLOBIN 9.8 g/dL (12.0-16.0); IMM GRAN# 0.09 X1000 (0.0-0.04); IMM GRAN% 0.4 % (0.0-0.5); LYMPH# 0.65 X1000 (1.2-3.4); LYMPH% 3.2 % (20.5-51.1); MANUAL DIFF NEEDED? YES; MCH 28.1 PG (27-31); MCHC 36.4 g/dL (33-37); MCV 77.1 FL (81-99); MONO# 0.32 X1000 (0.11-0.59); MONO% 1.6 % (1.7-9.3); MPV 9.3 FL (7.4-10.4); NEUT% 94.8 % (42.2-75.2); PLT 324 X1000 (130-400); RBC 3.49 XMIL (4.2-5.4)
[2016-06-07] MEDS: SOLU-MEDROL IV SCH ×4 (06:32→21:56)
[2016-06-07] MEDS: NS 1,000 ML IV SCH ×3 (06:32→18:37)
[2016-06-07 06:38] LABS: LYMPHS 2 % (21-51); MONO 2 % (1-9)
[2016-06-07 06:44] LABS: AGAP 16; ALBUMIN 3.9 g/dL (3.5-5.0); ALKALINE PHOSPHATASE 58 U/L (32-104); BUN 14 mg/dL (8-22); CALCIUM 8.9 mg/dL (8.8-10.2); CHLORIDE 106 mmol/L (98-107); COSMO 290; GOT 10 U/L (10-30); GPT 11 U/L (10-36); POTASSIUM 3.5 mmol/L (3.5-5.1); SODIUM 143 mmol/L (136-145); TCO2 21 mmol/L (25-35); TOTAL BILIRUBIN 0.49 mg/dL (0.20-1.00); TOTAL PROTEIN 7.1 g/dL (6.3-8.3)
[2016-06-07] MEDS: CARAFATE PO SCH ×5 (08:36→21:57)
[2016-06-07] MEDS: LIALDA PO SCH (08:36)
[2016-06-07] MEDS: NEXIUM PO SCH (08:36)
[2016-06-07] MEDS: SYMBICORT 160/4.5 MICROGM INHALER INH SCH ×2 (09:27→21:03)
--- NOTE | 2016-06-07 13:14 | Diag Imaging Result Document ---
PROCEDURE NAME: CHEST-2 VIEWS - 06/07/2016 CHEST, 2 VIEWS: FINDINGS: Comparison to 06/05/2016. There has been interval decrease in infiltrate at right upper lobe. There is slightly there is slightly increased prominence of perihilar markings on the left. There is mild subsegmental atelectasis at the lung bases. There is no pleural effusion or pneumothorax identified. Heart size appears upper normal. IMPRESSION: 1. Decrease in right upper lobe infiltrate. 2. Slightly increased prominence of left perihilar markings which may relate to mild left perihilar infiltrate.
[2016-06-07] MEDS: ROCEPHIN 1 GM/NS 1 GM/50 ML IVPB IV SCH (13:38)
--- NOTE | 2016-06-07 14:48 | PROGRESS NOTE ---
DATE: 06/07/2016 SUBJECTIVE: Ms. Sharma is feeling much better and breathing comfortably and much stronger. OBJECTIVE: Vital signs: Remains afebrile temperature 98.3 degrees, pulse 76, respirations 18, blood pressure 159/88. CVP less than 6 cm. Lungs: Clear in all lung smith. Cardiovascular: Regular rhythm and rate without murmur or S3. Abdomen: Soft. Skin: Is warm and dry. Good urine output 2600 mL. DATA: White blood cell count 20,070, hematocrit 26, platelet count 324,000. Sodium 143, potassium 3.5, chloride 106, bicarb 21, BUN 14, creatinine 1.0, blood sugar 174, 180. Chest x- ray. Decreased right upper lobe infiltrate, slight increased prominence of left perihilar markings related to perihilar infiltrate clinically improving. ASSESSMENT AND PLAN: 1. Community-acquired right upper lobe pneumonia, takes prednisone at home. Continue Solu-Medrol at 80 mg IV q.8, nebulizers, Levaquin and Rocephin. 2. Sarcoidosis aware. She is on steroids. 3. Ulcerative colitis stable, continue mesalamine, Carafate, steroids. 4. Gastroesophageal reflux disease. Continue Nexium. 5. History of gastritis on Carafate. She is clinically better. Possibility she could go home tomorrow, review of her orders I do not see any change at this point. cc: Hakan Presley MD
[2016-06-07] MEDS: LEVAQUIN 750 MG/D5W 750 MG/150 ML IVPB IV SCH (15:52)
[2016-06-08] MEDS: DUONEB (A & A) INH SCH ×2 (03:36→10:28)
[2016-06-08] MEDS: SOLU-MEDROL IV SCH (03:36)
[2016-06-08] MEDS: NS 1,000 ML IV SCH (04:54)
[2016-06-08 05:27] VITALS: BP 188/80
[2016-06-08 06:15] LABS: HEMATOCRIT 25.3 % (37.0-47.0); HEMOGLOBIN 9.2 g/dL (12.0-16.0); IMM GRAN# 0.13 X1000 (0.0-0.04); LYMPH# 0.52 X1000 (1.2-3.4); LYMPH% 3.8 % (20.5-51.1); MANUAL DIFF NEEDED? YES; MCH 28.1 PG (27-31); MCHC 36.4 g/dL (33-37); MCV 77.4 FL (81-99); MONO# 0.28 X1000 (0.11-0.59); MONO% 2.1 % (1.7-9.3); MPV 9.9 FL (7.4-10.4); NEUT% 93.1 % (42.2-75.2); PLT 280 X1000 (130-400); RBC 3.27 XMIL (4.2-5.4)
[2016-06-08 06:24] LABS: BANDS 6 % (0-1); HYPOCHROM OCCASIONAL; LYMPHS 4 % (21-51); MONO 2 % (1-9)
[2016-06-08 06:25] LABS: AGAP 16; ALBUMIN 3.8 g/dL (3.5-5.0); ALKALINE PHOSPHATASE 54 U/L (32-104); BUN 17 mg/dL (8-22); CHLORIDE 109 mmol/L (98-107); COSMO 297; GOT 11 U/L (10-30); GPT 10 U/L (10-36); MAGNESIUM 2.1 mg/dL (1.5-2.7); SODIUM 146 mmol/L (136-145); TCO2 21 mmol/L (25-35); TOTAL BILIRUBIN 0.32 mg/dL (0.20-1.00); TOTAL PROTEIN 5.9 g/dL (6.3-8.3)
[2016-06-08] MEDS: CARAFATE PO SCH (08:30)
[2016-06-08] MEDS: NEXIUM PO SCH (08:31)
[2016-06-08] MEDS: LIALDA PO SCH (08:31)
[2016-06-08] MEDS ORDERED: PREDNISONE PO SCH (09:00)
[2016-06-08] MEDS: SYMBICORT 160/4.5 MICROGM INHALER INH SCH (10:28)
--- NOTE | 2016-06-08 10:32 | DISCHARGE SUMMARY ---
ADMISSION DATE: 06/05/2016 DISCHARGE DATE: 06/08/2016 HISTORY AND HOSPITAL COURSE: This is a 55-year-old with a significant past history for sarcoidosis diagnosed in 2013 and apparently ulcerative colitis diagnosed about a year ago. Dr. Trevino follows her for ulcerative colitis. Dr. Trimble follows her for sarcoidosis, on routine prednisone 30 mg daily. Was feeling fine until about 3:30 in the morning and woke up with nausea and then went to the bathroom and threw up. There was emesis coming out of her nose. Did not feel like she aspirated any. The main thing was she was short of breath though. X-ray revealed right upper lobe pneumonia, elevated white count. Put on antibiotics. She was treated aggressively with ceftriaxone 1 g q.24 hours and Levaquin 750 mg a day. She showed steady improvement clinically. Her chest x-ray repeated on showed decrease in right upper lobe infiltrate and slight increase in the left perihilar markings, clinically though much better. [place] she could go home on 06/08/2016. We will keep her on Levaquin for another 7 days. Follow up with her primary care and Dr. Trimble and Dr. Trevino. DISCHARGE MEDICATIONS: She will be on Nexium 40 mg a day, mesalamine 4.8 g p.o. daily, prednisone 10 mg t.i.d., and Carafate 1 g 4 times a day. I will have her on Levaquin that she will take 750 mg daily for another 7 days. cc: Hakan Presley MD
== END 2016-06-08 12:46 | disposition home or self-care (01) ==
LOC: ED 11:56 → 4N 11:57 → SUATTDRO 11:57
PROVIDERS: ATTEND Emergency Medicine

== ENCOUNTER 2016-06-10 08:48 | Inpatient (IN) ==
[2016-06-10] MEDS ORDERED: DUONEB (A & A) INH ONE (09:10)
[2016-06-10] MEDS ORDERED: SOLU-MEDROL IV ONE (09:10)
[2016-06-10] MEDS ORDERED: NS 1,000 ML IV ONE (09:11)
[2016-06-10 09:21] LABS: ALLEN TEST YES; BE 0.8 mmoll (-3.0-3.0); BLOOD TYPE ARTERIAL; DRAW SITE R RADIAL; METHB 1.3 % (0.0-1.5); O2(CT) 11.5 mL/dL (15.0-23.0); PCO2(98.6) 25 mmHg (35-45); PO2(98.6) 61 mmHg (60-100); SAMPLE BLOOD; SAO2 98.2 % (95.0-100.0); THB 8.9 g/dL (11.5-17.4)
[2016-06-10 09:24] LABS: MODALITY CANNULA; pH(98.6) 7.56 (7.35-7.45)
--- NOTE | 2016-06-10 09:33 | EKG Report ---
Test Performed on : 06/10/2016 08:59:08 AM Test Reason : AMS Blood Pressure : / mmHG Vent. Rate : 122 BPM Atrial Rate : 122 BPM P-R Int : 140 ms QRS Dur : 082 ms QT Int : 306 ms P-R-T Axes : 033 026 029 degrees QTc Int : 436 ms Sinus tachycardia. Cannot rule out Anterior infarct (cited on or before 13-APR-2016) Abnormal ECG When compared with ECG of 05-JUN-2016 12:23, Criteria for Inferior infarct are no longer present Questionable change in initial forces of Anterior leads Non-specific change in ST segment in Lateral leads Unconfirmed Result
[2016-06-10 09:40] LABS: HEMATOCRIT 20.8 % (37.0-47.0); HEMOGLOBIN 7.4 g/dL (12.0-16.0); IMM GRAN# 2.42 X1000 (0.0-0.04); LYMPH# 7.33 X1000 (1.2-3.4); LYMPH% 18.2 % (20.5-51.1); MANUAL DIFF NEEDED? YES; MCH 27.6 PG (27-31); MCHC 35.6 g/dL (33-37); MCV 77.6 FL (81-99); MPV 8.5 FL (7.4-10.4); NEUT% 69.8 % (42.2-75.2); PLT 137 X1000 (130-400); RBC 2.68 XMIL (4.2-5.4)
[2016-06-10] MEDS ORDERED: VANCOMYCIN 1 GM/NS 1 GM/250 ML IVPB IV ONE (09:50)
[2016-06-10] MEDS ORDERED: ZOSYN 3.375 GM/NS 3.375 GM/50 ML IVPB IV ONE (09:50)
--- NOTE | 2016-06-10 09:52 | Diag Imaging Result Document ---
PROCEDURE NAME: CHEST-PORTABLE - 06/10/2016 PORTABLE CHEST: COMPARISON: 06/07/2016. FINDINGS: The heart is borderline mildly prominent although this is a portable semiupright chest. The vessels are not distended. The lungs are well expanded. No pneumonia. No pleural effusions identified. There has been prior surgery to the lower neck. IMPRESSION: Borderline mildly prominent heart.
[2016-06-10 10:07] LABS: AGAP 17; ALKALINE PHOSPHATASE 220 U/L (32-104); BUN 25 mg/dL (8-22); CALCIUM 9.3 mg/dL (8.8-10.2); CHLORIDE 106 mmol/L (98-107); CK PROFILE 151 U/L (24-173); COSMO 296; GOT 74 U/L (10-30); GPT 43 U/L (10-36); POTASSIUM 3.4 mmol/L (3.5-5.1); SODIUM 145 mmol/L (136-145); TCO2 22 mmol/L (25-35); TOTAL BILIRUBIN 2.83 mg/dL (0.20-1.00); TOTAL PROTEIN 7.3 g/dL (6.3-8.3)
[2016-06-10 11:28] LABS: LYMPHS 14 % (21-51); MONO 2 % (1-9); NRBC 3 % (0-0)
[2016-06-10 11:30] LABS: HYPOCHROM 1+; LARGE PLATELETS OCCASIONAL
--- NOTE | 2016-06-10 11:33 | PROVIDER DOCUMENTATION ---
This chart was entered by Ubaldo Real Scribe, acting as scribe for Eddie Rojo MD. HPI-Respiratory General - General Stated Complaint: sob Time Seen by Provider: 06/10/16 09:00 Source: family Unable to obtain history due to:: urgency Allergies/Adverse Reactions: Patient Allergies Allergy/AdvReac Type Severity Reaction Status Date / Time No Known Allergies Allergy Verified 06/09/16 11:24 Home Medications: Home Medication List Medication Instructions Recorded Confirmed Last Taken Type Mesalamine D.r. [Lialda] 4.8 gm PO DAILY #112 tablet 01/31/16 06/09/16 06/08/16 12:30 Rx Sucralfate [Carafate] 1 gm PO 4XDAY #120 tablet 01/31/16 06/09/16 06/08/16 12: 30 Rx Esomeprazole [Nexium] 40 mg PO DAILY 06/05/16 06/09/16 06/08/16 12:30 History Prednisone 10 mg PO TID 06/05/16 06/09/16 06/08/16 12:30 History Levofloxacin [Levaquin] 750 mg PO DAILY #7 tablet 06/08/16 06/09/16 Unknown Rx Cyclobenzaprine [Flexeril] 10 mg PO TID #20 tablet 06/09/16 Unknown Rx Ketorolac [Toradol] 10 mg PO Q8H PRN PRN #15 tablet 06/09/16 Unknown Rx - History of Present Illness-Resp Nature of Presenting Problem: patient is a 55 yo/ F that presents to the ER with shortness of breath and lethargy. Family called 911. patient on arrival to Er had an 02 saturation of 81 % RA. was d/c from hospital on 06/08/16 with PNA. family denies her having fever. She was here yesterday for back pain. limited history due to patient condition Severity in ED: reports: severe Onset/Duration: reports: unsure, this morning Timing: reports: still present, constant, getting worse Context: reports: recent URI. denies: out of meds, sports/exercise Associated Symptoms: reports: shortness of breath, sore throat, other (ams). denies: flu-like symptoms, nasal congestion, nasal drainage Similar Symptoms Previously?: Yes Recently seen or treated by another doctor?: Yes Review of Systems - Adult - REVIEW OF SYSTEMS - ADULT ROS:: ROS per family Constitutional: denies: chills, fever Eyes: reports: no symptoms reported Ears, Nose, Mouth & Throat: reports: no symptoms reported Cardiovascular: denies: chest pain, palpitations, syncope Respiratory: reports: shortness of breath. denies: cough, wheezing Gastrointestinal: denies: diarrhea, vomiting Genitourinary: reports: no symptoms reported Musculoskeletal: reports: no symptoms reported Integumentary: reports: no symptoms reported Neurological: reports: no symptoms reported Psychiatric: reports: no symptoms reported Endocrine: reports: no symptoms reported Hematologic/Lymphatic: reports: no symptoms reported Allergic/Immunologic: reports: no symptoms reported All Other Systems: Reviewed and Negative Past History - Adult - PAST MEDICAL HISTORY-ADULT Review of Records: reports: Old Records Reviewed, Nursing Assessment Review, Medications Reviewed Cardiovascular: reports: HTN Respiratory: reports: other (sarcoidosis) Gastrointestinal: reports: colitis (ulcerative), GERD Genitourinary: reports: kidney disease (acute) Musculoskeletal: reports: arthritis Additional History: renal failure - PRIOR SURGERIES/PROCEDURES Surgical/Procedure History: reports: hysterectomy, - IMMUNIZATION STATUS Childhood Immunizations: See Nurse Assessment Flu Vaccine: See Nurse Assessment - FAMILY HISTORY Family History: reviewed, not pertinent - SOCIAL HISTORY Smoking: non-smoker Living Situation: family Physical Exam-General - PHYSICAL EXAM-ADULT Exam Limited by: pt condition Initial Vital Signs Reviewed: Yes - CONSTITUTIONAL General Appearance: severe distress, lethargic, slow to respond - EYES Eyes: PERRL/EOMI, pink conjunctivae - HEAD, EARS, NOSE, MOUTH & THROAT HENMT: normocephalic/atraumatic, moist mucous membranes, normal ENT inspection - NECK Neck: full range of motion, normal inspection - RESPIRATORY Respiratory: decreased breath sounds, accessory muscle use, retractions, increased rate - CARDIOVASCULAR Cardiovascular: no murmur, tachycardia - GASTROINTESTINAL (ABDOMEN) Abdominal Exam: normal bowel sounds, non tender, soft - GENITOURINARY Rectal Exam: blood streaked stool (small amoutn), hemorrhoids (external) - MUSCULOSKELETAL Extremity: no pedal edema, normal capillary refill - PSYCHIATRIC Psych/Mental Status: other (lethargic) Progress - PLAN OF CARE/RESULTS Progress/Plan/Lab Results: Vital Signs - 8 hr 06/10/16 08:54 06/10/16 09:06 06/10/16 09:41 Temperature 99.3 F Pulse Rate 126 H 122 H Respiratory Rate 32 H 32 H Blood Pressure 148/77 O2 Sat by Pulse Oximetry 82 L 97 100 Laboratory Results - last 24 hr 06/10/16 06/10/16 06/10/16 09:10 09:14 09:14 WBC 40.36 H RBC 2.68 L Hgb 7.4 L Hct 20.8 L MCV 77.6 L MCH 27.6 MCHC 35.6 RDW Std Deviation 17.1 H Plt Count 137 MPV 8.5 Immature Gran % (Auto) 6.0 H Neut % (Auto) 69.8 Lymph % (Auto) 18.2 L Cecil % (Auto) 5.0 Eos % (Auto) 0.0 Baso % (Auto) 1.0 H Immature Gran # (Auto) 2.42 H Neut # (Auto) 28.22 H Lymph # (Auto) 7.33 H Cecil # (Auto) 2.00 H Eos # (Auto) 0.00 Baso # (Auto) 0.39 H Specimen Type ARTERIAL Sample Site R RADIAL pH 7.56 H* pCO2 25 L pO2 61 HCO3 25.5 Base Excess 0.8 Oxyhemoglobin 91.3 L ABG O2 Sat (Calculated) 11.5 L ABG O2 Saturation 98.2 ABG Carboxyhemoglobin 5.70 H* ABG Methemoglobin 1.3 Hakan Test YES A-a O2 Difference 164.0 Total Hemoglobin 8.9 L Lactate 1.90 Liter Flow 4.0 Blood Gas Modality CANNULA FiO2 % 36.0 Sodium Potassium Chloride Carbon Dioxide Anion Gap BUN Creatinine Estimated GFR/1.73 m2 BUN/Creatinine Ratio Glucose Calculated Osmolality Calcium Total Bilirubin AST ALT Alkaline Phosphatase Creatine Kinase Troponin T Total Protein Albumin Globulin Albumin/Globulin Ratio Plasma/Serum Ethyl Alc 06/10/16 06/10/16 09:14 09:14 WBC RBC Hgb Hct MCV MCH MCHC RDW Std Deviation Plt Count MPV Immature Gran % (Auto) Neut % (Auto) Lymph % (Auto) Cecil % (Auto) Eos % (Auto) Baso % (Auto) Immature Gran # (Auto) Neut # (Auto) Lymph # (Auto) Cecil # (Auto) Eos # (Auto) Baso # (Auto) Specimen Type Sample Site pH pCO2 pO2 HCO3 Base Excess Oxyhemoglobin ABG O2 Sat (Calculated) ABG O2 Saturation ABG Carboxyhemoglobin ABG Methemoglobin Hakan Test A-a O2 Difference Total Hemoglobin Lactate Liter Flow Blood Gas Modality FiO2 % Sodium 145 Potassium 3.4 L Chloride 106 Carbon Dioxide 22 L Anion Gap 17 BUN 25 H Creatinine 1.1 H Estimated GFR/1.73 m2 > 60 BUN/Creatinine Ratio 23 Glucose 153 H Calculated Osmolality 296 Calcium 9.3 Total Bilirubin 2.83 H AST 74 H ALT 43 H Alkaline Phosphatase 220 H Creatine Kinase 151 Troponin T 0.263 H Total Protein 7.3 Albumin 4.0 Globulin 3.3 Albumin/Globulin Ratio 1.2 Plasma/Serum Ethyl Alc Orders Category Date Time Status Cardiac Monitoring DIRECTED Care 06/10/16 09:08 Active Finger Stick Blood Sugar (ED) DIRECTED Care 06/10/16 09:08 Active Oxygen Therapy- ED Nursing DIRECTED Care 06/10/16 09:08 Active Saline Loc NOW Care 06/10/16 09:08 Active CHEST-PORTABLE [RAD] Stat Exams 06/10/16 09:08 Completed ABG [RESP] Routine Lab 06/10/16 09:10 Completed ALCOHOL BLOOD Stat Lab 06/10/16 09:14 Completed BLOOD CULTURE [BLDCUL] Stat Lab 06/10/16 09:14 Received CBC WITH ELECTRONIC DIFF [HEME] Stat Lab 06/10/16 09:14 Results CK PROFILE [SP CHEM] Stat Lab 06/10/16 09:14 Completed COMPREHENSIVE METABOLIC PANEL [CHEM] Stat Lab 06/10/16 09:14 Completed OCCULT BLOOD SCREENING [STOOL] Stat Lab 06/10/16 09:49 Uncollected TROPONIN T Stat Lab 06/10/16 09:14 Completed TYPE & SCREEN [BBK] Stat Lab 06/10/16 09:49 Uncollected URINALYSIS W/POSS RFLX CULT [URINALYSIS] Stat Lab 06/10/16 09:08 Uncollected URINE DRUG SCREEN Stat Lab 06/10/16 09:08 Uncollected 0.9% Sodium Chloride Inj [Ns] 1,000 ml Med 06/10/16 09:11 Discontinued IV 999 mls/hr Albuterol 2.5MG/Ipratrop 0.5MG [Duoneb (A & A)] Med 06/10/16 09:10 Discontinued 3 ml INH NOW ONE Methylprednisolone Sod Succ [Solu-Medrol] Med 06/10/16 09:10 Discontinued 125 mg IV NOW ONE Piperacil/Tazobact 3.375 gm/Ns [Zosyn 3.375 gm/Ns] Med 06/10/16 09:50 Discontinued 3.375 gm in 50 ml IV NOW Vancomycin 1 gm/Ns Med 06/10/16 09:50 Discontinued 1 gm in 250 ml IV NOW Aerosol Treatments Routine Oth 06/10/16 09:11 Completed Aerosol Treatments Stat Oth 06/10/16 09:11 Completed BIPAP Stat Oth 06/10/16 09:42 Active Pulse Oximetry Stat Oth 06/10/16 09:08 Active EKG [EKG] Stat Ther 06/10/16 09:08 Draft pt was placed on BiPaP on arrival due to respiratory distress 1120-Hospitalist paged for admission Vital Signs Temp Pulse Resp BP Pulse Ox 06/10/16 09:41 122 H 32 H 100 06/10/16 09:06 97 06/10/16 08:54 99.3 F 126 H 32 H 148/77 82 L No Known Allergies Allergy (Verified 06/09/16 11:24) Mesalamine D.r. [Lialda] 4.8 gm PO DAILY #112 tablet 01/31/16 Sucralfate [Carafate] 1 gm PO 4XDAY #120 tablet 01/31/16 Esomeprazole [Nexium] 40 mg PO DAILY 06/05/16 Prednisone 10 mg PO TID 06/05/16 Levofloxacin [Levaquin] 750 mg PO DAILY #7 tablet 06/08/16 Cyclobenzaprine [Flexeril] 10 mg PO TID #20 tablet 06/09/16 Ketorolac [Toradol] 10 mg PO Q8H PRN PRN #15 tablet 06/09/16 I&O 06/09/16 06/10/16 06/11/16 06:59 06:59 06:59 Intake Total 450 / 450 Balance 450 / 450 Laboratory 06/10/16 06/10/16 06/10/16 09:14 09:14 09:14 WBC 40.36 H RBC 2.68 L Hgb 7.4 L Hct 20.8 L MCV 77.6 L MCH 27.6 MCHC 35.6 RDW Std Deviation 17.1 H Plt Count 137 MPV 8.5 Immature Gran % (Auto) 6.0 H Neut % (Auto) 69.8 Lymph % (Auto) 18.2 L Cecil % (Auto) 5.0 Eos % (Auto) 0.0 Baso % (Auto) 1.0 H Immature Gran # (Auto) 2.42 H Neut # (Auto) 28.22 H Lymph # (Auto) 7.33 H Cecil # (Auto) 2.00 H Eos # (Auto) 0.00 Baso # (Auto) 0.39 H Specimen Type Sample Site pH pCO2 pO2 HCO3 Base Excess Oxyhemoglobin ABG O2 Sat (Calculated) ABG O2 Saturation ABG Carboxyhemoglobin ABG Methemoglobin Hakan Test A-a O2 Difference Total Hemoglobin Lactate Liter Flow Blood Gas Modality FiO2 % Sodium 145 Potassium 3.4 L Chloride 106 Carbon Dioxide 22 L Anion Gap 17 BUN 25 H Creatinine 1.1 H Estimated GFR/1.73 m2 > 60 BUN/Creatinine Ratio 23 Glucose 153 H Calculated Osmolality 296 Calcium 9.3 Total Bilirubin 2.83 H AST 74 H ALT 43 H Alkaline Phosphatase 220 H Creatine Kinase 151 Troponin T 0.263 H Total Protein 7.3 Albumin 4.0 Globulin 3.3 Albumin/Globulin Ratio 1.2 Plasma/Serum Ethyl Alc 06/10/16 06/10/16 09:14 09:10 WBC RBC Hgb Hct MCV MCH MCHC RDW Std Deviation Plt Count MPV Immature Gran % (Auto) Neut % (Auto) Lymph % (Auto) Cecil % (Auto) Eos % (Auto) Baso % (Auto) Immature Gran # (Auto) Neut # (Auto) Lymph # (Auto) Cecil # (Auto) Eos # (Auto) Baso # (Auto) Specimen Type ARTERIAL Sample Site R RADIAL pH 7.56 H* pCO2 25 L pO2 61 HCO3 25.5 Base Excess 0.8 Oxyhemoglobin 91.3 L ABG O2 Sat (Calculated) 11.5 L ABG O2 Saturation 98.2 ABG Carboxyhemoglobin 5.70 H* ABG Methemoglobin 1.3 Hakan Test YES A-a O2 Difference 164.0 Total Hemoglobin 8.9 L Lactate 1.90 Liter Flow 4.0 Blood Gas Modality CANNULA FiO2 % 36.0 Sodium Potassium Chloride Carbon Dioxide Anion Gap BUN Creatinine Estimated GFR/1.73 m2 BUN/Creatinine Ratio Glucose Calculated Osmolality Calcium Total Bilirubin AST ALT Alkaline Phosphatase Creatine Kinase Troponin T Total Protein Albumin Globulin Albumin/Globulin Ratio Plasma/Serum Ethyl Alc Orders Category Date Time Status Cardiac Monitoring DIRECTED Care 06/10/16 09:08 Active Finger Stick Blood Sugar (ED) DIRECTED Care 06/10/16 09:08 Active Oxygen Therapy- ED Nursing DIRECTED Care 06/10/16 09:08 Active Saline Loc NOW Care 06/10/16 09:08 Active CHEST-PORTABLE [RAD] Stat Exams 06/10/16 09:08 Completed ABG [RESP] Routine Lab 06/10/16 09:10 Completed ALCOHOL BLOOD Stat Lab 06/10/16 09:14 Completed BLOOD CULTURE [BLDCUL] Stat Lab 06/10/16 09:14 Received CBC WITH ELECTRONIC DIFF [HEME] Stat Lab 06/10/16 09:14 Results CK PROFILE [SP CHEM] Stat Lab 06/10/16 09:14 Completed COMPREHENSIVE METABOLIC PANEL [CHEM] Stat Lab 06/10/16 09:14 Completed OCCULT BLOOD SCREENING [STOOL] Stat Lab 06/10/16 09:49 Uncollected TROPONIN T Stat Lab 06/10/16 09:14 Completed TYPE & SCREEN [BBK] Stat Lab 06/10/16 09:49 Uncollected URINALYSIS W/POSS RFLX CULT [URINALYSIS] Stat Lab 06/10/16 09:08 Uncollected URINE DRUG SCREEN Stat Lab 06/10/16 09:08 Uncollected 0.9% Sodium Chloride Inj [Ns] 1,000 ml Med 06/10/16 09:11 Discontinued IV 999 mls/hr Albuterol 2.5MG/Ipratrop 0.5MG [Duoneb (A & A)] Med 06/10/16 09:10 Discontinued 3 ml INH NOW ONE Methylprednisolone Sod Succ [Solu-Medrol] Med 06/10/16 09:10 Discontinued 125 mg IV NOW ONE Piperacil/Tazobact 3.375 gm/Ns [Zosyn 3.375 gm/Ns] Med 06/10/16 09:50 Discontinued 3.375 gm in 50 ml IV NOW Vancomycin 1 gm/Ns Med 06/10/16 09:50 Discontinued 1 gm in 250 ml IV NOW Aerosol Treatments Routine Oth 06/10/16 09:11 Completed Aerosol Treatments Stat Oth 06/10/16 09:11 Completed BIPAP Stat Oth 06/10/16 09:42 Active Pulse Oximetry Stat Oth 06/10/16 09:08 Active EKG [EKG] Stat Ther 06/10/16 09:08 Draft Result Diagrams: 06/10/16 09:14 06/10/16 09:14 - REASSESSMENT Reassessment #1 Time Reassessed: 11:15 Status: improving Reassessment Comment: pt is improving, more alert, will call hospitalist for admission - EKG 1 Time of EKG reading by physician:: 08:59 EKG Read and Signed by:: Eddie Rojo EKG Interpretation (*Must complete 3 of following elements*): Abnormal Rate: 122 Rhythm: SinuS Tachycardia [place]: normal QRS: normal MD Interval: normal ST Wave: non-specific ST changes - XRAY 1 XRAY Study: Chest Impression: Abnormal XRAY Interpretation: mildy prominent heart - CONSULTS/PCP/HOSPITALIST Notification #1 *Consult/PCP/Hospitalist*: (hospitalist) Time Discussed: 11:22 Consult Disposition: Admit Departure - Departure Time of Disposition Decision: 11:20 DIAGNOSIS: Sepsis, Respiratory distress, Leukocytosis, Anemia, Elevated liver enzymes, Elevated troponin, MANISH (acute kidney injury), Hypokalemia Disposition: ADMITTED INPATIENT 09 Certified Medical Emergency: Emergent Condition: Critical Referrals and Follow-Ups: Brant Hancock MD [Primary Care Provider] - - Critical Care Note Total Time (mins): 45 Critical Care Statement: This patient required my direct personal management to treat or rule out processes, the absence of which, could potentiallly result in sudden, clinically significant life or limb threatening deterioration. This chart was documented by the indicated scribe, (Ubaldo Real, Scribe) and accurately reflects the services I performed and decisions made by me, Eddie Rojo MD, as attested by the provider's signature.
[2016-06-10 12:40] LABS: URINE CULTURE NEEDED? NO; URINE MICRO REVIEW NEEDED? NO; URINE SOURCE CATH
[2016-06-10 12:56] LABS: BILIRUBIN URINE NEGATIVE (NEGATIVE); BLOOD URINE NEGATIVE (NEGATIVE); COLOR YELLOW; GLUCOSE URINE NEGATIVE (NEGATIVE); LEUKOCYTES URINE NEGATIVE (NEGATIVE); NITRITE URINE NEGATIVE (NEGATIVE); PH URINE 5.5; PROTEIN URINE 50 mg/dL (NEGATIVE); SP GRAVITY URINE 1.014; TURBIDITY URINE CLEAR (CLEAR); UROBILINOGEN URINE NORMAL (NORMAL)
[2016-06-10 12:58] LABS: UR EPITHELIAL CELLS <10 /HPF (<10); URINE BACTERIA NEGATIVE /HPF; URINE RBC <10 /HPF (<10); URINE WBC <10 /HPF (<10)
[2016-06-10 13:09] LABS: UR AMPHETAMINES QUAL NONE DETECTED (NONE DETECT); UR BARBITUATES QUAL NONE DETECTED (NONE DETECT); UR BENZODIAZEPIN QUAL NONE DETECTED (NONE DETECT); UR CANNABINOIDS QUAL NONE DETECTED (NONE DETECT); UR COCAINE QUAL NONE DETECTED (NONE DETECT); UR METHADONE QUAL NONE DETECTED (NONE DETECT); UR OPIATES QUAL PRESUMPTIVE POSITIVE (NONE DETECT); UR OXYCODONE QUAL PRESUMPTIVE POSITIVE (NONE DETECT); UR PCP QUAL NONE DETECTED (NONE DETECT)
[2016-06-10] MEDS ORDERED: VANCOMYCIN IV PER PHARMACY MISC SCH (13:30)
[2016-06-10] MEDS ORDERED: NS 1,000 ML IV SCH (13:30)
[2016-06-10] MEDS ORDERED: DUONEB (A & A) INH PRN (13:30)
[2016-06-10 13:34] LABS: INR 1.2; PROTIME 12.7 Seconds (9.2-11.7)
--- NOTE | 2016-06-10 13:39 | Diag Imaging Result Document ---
PROCEDURE NAME: HEAD W/O CONTRAST - 06/10/2016 CT HEAD WITHOUT CONTRAST: A dose-reduction protocol was used. COMPARISON: 03/23/2014. FINDINGS: There is no evidence of hemorrhage, mass effect, midline shift, or hydrocephalus. 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 There is no evidence of infarct although acute infarcts may not be immediately visible. IMPRESSION: No visible acute process. No hemorrhage or mass effect.
[2016-06-10 14:09] LABS: ACETAMINOPHEN < 1.2 ug/mL (10-30)
--- NOTE | 2016-06-10 14:16 | Diag Imaging Result Document ---
PROCEDURE NAME: ABD/PELVIS/PULM ARTERIES - 06/10/2016 CT ANGIOGRAM PULMONARY ARTERIES WITH CONTRAST: Exam performed with intravenous contrast. Axial and coronal images are obtained. A dose-reduction protocol was used. COMPARISON: Compared with the without contrast CT thorax of 06/28/2013. FINDINGS: There are no filling defects identified in the pulmonary arteries. There is no indication of aortic dissection. There is cardiomegaly. There are hazy bilateral perihilar infiltrates or edema. These are less dense than the infiltrates which were present on the previous exam. There is no focal dense consolidation, pleural effusion, or pneumothorax identified. There has been substantial decrease in mediastinal adenopathy compared to previous exam. There is slight fullness at the subcarinal region. There is no other substantial adenopathy identified. There is heterogeneous mild enlargement of the thyroid. There is a small hiatal hernia. IMPRESSION: 1. No evidence of pulmonary embolism. 2. Cardiomegaly. 3. Hazy bilateral perihilar infiltrates or edema. 4. No dense consolidation. CT ABDOMEN AND PELVIS WITH IV CONTRAST ONLY: FINDINGS: Exam performed with intravenous contrast only per request of the referring provider. A dose-reduction protocol was used. COMPARISON: Compared with the without contrast exam of 04/14/2016. There is splenomegaly similar to the previous exam. There are no acute abnormalities of the liver, adrenal glands, pancreas, or kidneys identified. There is no hydronephrosis. The left kidney is mildly compressed by the enlarged spleen. The gallbladder is surgically absent. There are no substantially enlarged lymph nodes identified. There is a small hiatal hernia. There is no evidence of bowel obstruction. The appendix shows no obvious inflammation. There is no substantial bowel wall thickening apparent. There is no abscess identified. There is no free air or substantial free fluid seen. Images of pelvis, otherwise, show postsurgical changes of hysterectomy. There is a Tripathi catheter in the urinary bladder. There is no abnormal pelvic mass or fluid collection identified. There is some subcutaneous edema over the bilateral lateral lower abdomen. There is no subcutaneous abscess identified. There are arthritic changes of the L4-5 facets with widening of the facet joints, similar to the previous exam. IMPRESSION: 1. Stable splenomegaly. 2. Small hiatal hernia. No bowel obstruction. Unremarkable appendix. 3. No abscess. No free air. No free fluid. 4. Some subcutaneous edema at bilateral lateral lower abdomen. No evidence of subcutaneous abscess. 5. Arthritic changes of L4-5 facets.
[2016-06-10] MEDS: DUONEB (A & A) INH SCH ×3 (14:52→23:20)
[2016-06-10] MEDS: SOLU-MEDROL IV SCH ×2 (14:57→22:28)
[2016-06-10 14:58] LABS: FREE T4 1.08 ng/dL (0.93-1.70)
[2016-06-10] MEDS: PROTONIX IV SCH (15:00)
--- NOTE | 2016-06-10 15:21 | HISTORY AND PHYSICAL ---
CHIEF COMPLAINT: Shortness of breath, altered mental status. HISTORY OF PRESENT ILLNESS: Mrs. Sharma is 55-year-old female , well known to our service with a history of sarcoidosis and ulcerative colitis, chronic anemia , and others, who was recently discharged from our service 2 days ago with a diagnosis of pneumonia. She was discharged on antibiotics appropriately. She came back to the ER last night complaining of back pain apparently. She was discharged home with a diagnosis is sciatica. This morning the patient has been complaining of shortness of breath. Her family states that she was altered and they called 911. It is difficult to obtain history from the patient right now as she is altered and is a poor historian. [id number] and son are at the bedside, able to answer questions. Apparently when she got to the ER today she was noted to be quite hypoxic at 82 % on room air and tachycardic at 126. Her lab work shows a white count of 40 with a hemoglobin of 7.4 and hematocrit of 20.8. ABG showed a respiratory alkalosis with carboxyhemoglobinemia. Her chemistry shows elevated liver function tests, elevated troponin, and mild renal insufficiency. Apparently the patient has been short of breath and complaining of lower back pain, but there has been no nausea, vomiting. No chest pain. No lower extremity edema. Her chest x-ray shows borderline cardiomegaly. Her vital signs are a bit more stable now that she is on high-flow oxygen. Her heart rate is still in the 1-teens and she is still breathing 30-40 times a minute. Blood cultures have been obtained for sepsis and broad- spectrum antibiotics have been initiated. She is going to be admitted to the ICU for further treatment and evaluation. PAST MEDICAL HISTORY: 1. Recent diagnosis of community-acquired pneumonia. 2. Ulcerative colitis. 3. Sarcoidosis. 4. Chronic anemia. 5. Acid reflux. 6. Osteoarthritis. 7. Degenerative disk disease. PAST SURGICAL HISTORY: She has had a cholecystectomy, hysterectomy, and 2 C sections. SOCIAL HISTORY: There is no history of tobacco, alcohol, or drug use. REVIEW OF SYSTEMS: Unable to obtain at this time. MEDICATIONS: Currently being compiled. Her discharge medications from 2 days ago were Flexeril 10 mg as needed, Nexium 40 mg daily, Toradol 10 mg as needed, Levaquin 750 mg p.o. daily, Lialda 4 g p.o. as directed, prednisone 10 mg t.i.d., Carafate 1 g 4 times a day. ALLERGIES: No known drug allergies. PHYSICAL EXAMINATION: VITAL SIGNS: Blood pressure is 139/85, heart rate is 113, respiratory rate is 40, O2 saturation is 100% on 4 L nasal cannula, temperature is 99.3 degrees. GENERAL: This is an overweight, female, lying in hospital bed in moderate respiratory distress and overall lethargic. NEUROLOGIC: The patient is lethargic. She follows commands without focal deficits but she is clearly confused. She is unable to tell us where she is or the date. She does know her name and date of . HEENT: Head is atraumatic and normocephalic. Her pupils are equal, round, reactive to light. Oral mucosa is a bit dry. Trachea is midline. There is no JVD. CHEST: Clear to auscultation bilaterally. Clearly tachypneic. Mild increased work of breathing noted. GI: Perhaps some mild right upper quadrant tenderness to palpation. Otherwise belly is soft and nondistended. EXTREMITIES: Without edema, clubbing or cyanosis. Pulses are palpable bilaterally. DIAGNOSTIC DATA: Chest x-ray shows mildly prominent cardiac silhouette, nothing acute. WBC 40.36, hemoglobin 7.4, hematocrit 20.8, platelet count 137,000. ABG on 4 L, pH 7.56, CO2 25, O2 61, bicarb 25.5, carboxyhemoglobin 5.7. Sodium 145, potassium 3.4, chloride 106 , CO2 22, anion gap 17, BUN 25, creatinine 1.1, glucose 153, total bilirubin 2.83, AST 74, ALT 43, alkaline phosphatase 220, troponin 0.263. UA is negative for acute process. There is 50 protein. Toxicology is presumptive positive for opiates and oxycodone. ASSESSMENT AND PLAN: 1. Sepsis: Source is unclear at this time. However, she was recently treated for pneumonia so we will presume she has healthcare-associated pneumonia and treat her for such. Blood cultures and sputum cultures have been obtained. We will continue vancomycin and Zosyn until cultures have come back. We will continue fluid resuscitation. Her white count in part is likely secondary to her chronic steroid use. She will be going to the ICU for close observation. Lactic acid has also been ordered. 2. Hypoxic respiratory failure: Unclear as to the etiology as her chest x-ray does not show anything acute. Her tox screen is positive for opiates and oxycodone. However, she is breathing 30-40 times a minute so it is less likely that narcotic overdose would be the cause. We are going to check a CT of the chest with contrast to evaluate for pulmonary embolism. She has had a recent echocardiogram which did not show anything acute. She is being treated for underlying pneumonia. 3. Toxic metabolic encephalopathy: Again, causes are unknown and likely multifactorial. She is septic. She does have a positive drug screen. We are also going to check an ammonia level and treat underlying metabolic issues. 4. Anemia: This is chronic and likely acute on chronic. Her last hemoglobin was 2 days ago which was 9.2. She is being typed and screened and will likely give her a unit of blood now. 5. Elevated liver function test: On review this is chronic. We are checking a CT of the abdomen and pelvis now. After reviewing her past admissions, she has had a comprehensive workup including autoimmune studies for autoimmune hepatitis. All of those were negative. We are going to check Tylenol and salicylate levels and a CT of the abdomen and pelvis. 6. Elevated troponins: Secondary to her sepsis. She has had a normal echocardiogram recently. We will trend her enzymes. 7. History of ulcerative colitis: Her medications are on hold. This appears to be stable with the exception of her anemia. We will monitor this closely. 8. Deep vein thrombosis prophylaxis is going to be provided with TEDs and SCDs. Further recommendations to follow. Dictated by CANDIDA Lopez for Yusuf Salinas MD cc: CANDIDA Lopez Addendum: I personally evaluated and examined the patient in conjunction to the KINESIOLOGIST and agreed with his assessment and plans. She couldn't recall any rectal bleed, melena or hematochezia. [facility] CAMPUSMikey
[2016-06-10 15:29] LABS: IRON SATURATION 98 %; TIBC 225 ug/dL; TOTAL IRON 220 ug/dL (49-151); UNBOUND IRON 6 ug/dL (112-346)
[2016-06-10 15:58] LABS: CK-MB 5.93 ng/mL (0.0-5.0)
[2016-06-10] MEDS ORDERED: VANCOMYCIN 1,250 MG in NS 250 ML IV ONE (16:30)
[2016-06-10] MEDS: NS 1,000 ML IV SCH (18:12)
[2016-06-10] MEDS ORDERED: DUONEB (A & A) ONE (19:06)
[2016-06-10] MEDS: ZOSYN 3.375 GM/NS 3.375 GM/50 ML IVPB IV SCH (21:23)
[2016-06-11] MEDS: ZOSYN 3.375 GM/NS 3.375 GM/50 ML IVPB IV SCH ×4 (02:02→20:09)
[2016-06-11] MEDS: DUONEB (A & A) INH SCH ×6 (03:45→22:44)
[2016-06-11] MEDS: SOLU-MEDROL IV SCH ×3 (04:43→21:07)
[2016-06-11 05:14] LABS: HEMATOCRIT 21.5 % (37.0-47.0); HEMOGLOBIN 7.5 g/dL (12.0-16.0); MCH 27.3 PG (27-31); MCHC 34.9 g/dL (33-37); MCV 78.2 FL (81-99); MPV 8.6 FL (7.4-10.4); RBC 2.75 XMIL (4.2-5.4)
[2016-06-11 05:33] LABS: ALBUMIN 3.6 g/dL (3.5-5.0); CALCIUM 8.5 mg/dL (8.8-10.2); POTASSIUM 3.5 mmol/L (3.5-5.1); TOTAL BILIRUBIN 2.3 mg/dL (0.20-1.00); TOTAL PROTEIN 6.3 g/dL (6.3-8.3)
--- NOTE | 2016-06-11 06:01 | EKG Report ---
Test Performed on : 06/10/2016 4:07:51 PM Test Reason : CP Blood Pressure : / mmHG Vent. Rate : 115 BPM Atrial Rate : 115 BPM P-R Int : 142 ms QRS Dur : 086 ms QT Int : 318 ms P-R-T Axes : 050 072 037 degrees QTc Int : 439 ms Sinus tachycardia. Nonspecific ST and T wave abnormality Abnormal ECG When compared with ECG of 10-JUN-2016 08:59, (Unconfirmed) No significant change was found Confirmed by Lashawn MELCHOR, Chas Merino ([id number]) on 06/11/2016 6:35:33 PM
[2016-06-11 06:23] LABS: CK INDEX 1.4 (0.0-2.5); CK-MB 6.49 ng/mL (0.0-5.0)
[2016-06-11] MEDS: NS 1,000 ML IV SCH (08:12)
[2016-06-11] MEDS: LIALDA PO SCH (08:55)
[2016-06-11] MEDS ORDERED: CARAFATE PO SCH (09:00)
[2016-06-11] MEDS ORDERED: NEXIUM PO SCH (09:00)
[2016-06-11 09:42] LABS: ALLEN TEST YES; BE -2.1 mmoll (-3.0-3.0); BLOOD TYPE ARTERIAL; DRAW SITE R RADIAL; PCO2(98.6) 29 mmHg (35-45); PO2(98.6) 152 mmHg (60-100); SAMPLE BLOOD; SAO2 101.2 % (95.0-100.0); THB 3.5 g/dL (11.5-17.4); pH(98.6) 7.48 (7.35-7.45)
[2016-06-11 09:43] LABS: MODALITY PRB
[2016-06-11 09:44] LABS: METHB 3.3 % (0.0-1.5)
[2016-06-11 09:47] LABS: HEMATOCRIT 20.9 % (37.0-47.0); HEMOGLOBIN 7.3 g/dL (12.0-16.0)
[2016-06-11] MEDS ORDERED: CARDIZEM IV PRN (10:04)
--- NOTE | 2016-06-11 10:33 | Diag Imaging Result Document ---
PROCEDURE NAME: CHEST-PORTABLE - 06/11/2016 PORTABLE CHEST: COMPARISON: 06/10/2016. FINDINGS: There is cardiomegaly similar to the previous exam. Inspiration is mildly shallow. There are hazy mild perihilar opacities. There is no dense consolidation, gross pulmonary edema, pleural effusion, or pneumothorax identified. IMPRESSION: Stable cardiomegaly. Mildly shallow inspiration. Mild hazy perihilar opacities, possibly to slight central pulmonary edema. [facility]
--- NOTE | 2016-06-11 11:10 | Diag Imaging Result Document ---
PROCEDURE NAME: MRI BRAIN W W/O CONTRAST - 06/11/2016 MRI BRAIN WITHOUT AND WITH INTRAVENOUS CONTRAST, 06/11/2016: COMPARISON: Head CT 06/10/2016. FINDINGS: There is no diffusion abnormality. The ventricles and sulci are normal in size and contour. There is note of a cavum septum pellucidum et vergae. No intracranial mass or hemorrhage. No abnormal signal. No abnormal contrast enhancement. IMPRESSION: Negative exam.
[2016-06-11] MEDS ORDERED: CARDIZEM PO SCH (13:00)
--- NOTE | 2016-06-11 13:04 | PROGRESS NOTE ---
DATE: 06/11/2016 SUBJECTIVE: The patient is still rather lethargic, opens eyes, but does go back to sleep again. Appeared to be pale. OBJECTIVE: Vital Signs: Blood pressure 157/92, pulse of 111, respiration 37 and ranging from 25- 37, temperature of 97.8 degrees, satting 100% on non rebreather. General Appearance: Obese, black female, drowsy. HEENT: Anicteric sclerae. Clear conjunctivae. Pale looking in general. Neck: Supple. No JVD. No bruit. No nuchal rigidity. Cardiovascular: S1, S2. Normal rate and rhythm. No murmur, rubs, or gallops. Pulmonary: Clear to auscultation bilaterally. GI: Soft, nontender, nondistended. Normoactive bowel sounds. LABORATORY: Her white count 34.32, hemoglobin 7.3, hematocrit of 20.9, platelets of 81. Chemistry: Sodium 151, potassium 3.5, chloride 111, bicarbonate 19. BUN 48, creatinine 1.5, glucose of 226. Her total bilirubin is 2.3. ABG this morning reveals pH is 7.48, bicarbonate 29, oxygen 152. ASSESSMENT/PLAN: This is a 55-year-old white female admitted to the hospital for shortness of breath and decrease in mentation. 1. Altered mental status. Cause is not known at this time. Questionable exacerbation. Keep the patient on steroids for now. We will culture the patient. She is on the broad-spectrum antibiotics. The CAT scan of the chest, abdomen and pelvis was negative for any acute process. No pulmonary embolus. 2. Acute respiratory insufficiency, still breathing anywhere between 25-40 times a minute. ABG revealed it is improving compared to what it was yesterday. We will consult pulmonology to help us with the sarcoidosis. 3. Anemia. The patient received 1 unit yesterday. We will do every 8 hours hemoglobin and hematocrit, and we will transfuse her one more unit today. We will consult her gastroenterology doctor, Dr. Trevino of whom the patient is known to her. 4. Tachycardia. We will monitor the patient in the intensive care unit for now. We will probably start the patient on a low dose of diltiazem to keep her rate under control and for blood pressure as well. CODE STATUS: The patient is a full code. CRITICAL CARE TIME ON THIS PATIENT: 45 minutes.
[2016-06-11] MEDS: 1/2 NS 1,000 ML IV SCH (13:58)
[2016-06-11] MEDS: SODIUM CHLORIDE 0.9% INJ SCH (14:20)
[2016-06-11] MEDS: PROTONIX IV SCH (14:20)
[2016-06-11 15:44] LABS: CALCIUM 8.2 mg/dL (8.8-10.2); POTASSIUM 3.5 mmol/L (3.5-5.1)
[2016-06-11 16:12] LABS: CK INDEX 1.8 (0.0-2.5); CK-MB 6.61 ng/mL (0.0-5.0)
[2016-06-11 16:35] LABS: DIFF NEEDED? NO
[2016-06-11 16:43] LABS: DIFF NEEDED? NO
--- NOTE | 2016-06-11 17:19 | PROGRESS NOTE ---
DATE: 06/11/2016 Ms. Sharma had lumbar puncture attempted at L5 space and at L4 space and then accomplished at L3 space. Spinal fluid was initially slightly blood tinged but quickly cleared and remained clear. Fluid was obtained and sent to the lab. cc: Addison Jaimes III, MD
[2016-06-11 17:22] LABS: APPEARANCE CLEAR; RBC BF 14 /cumm; WBC BF 3 /cumm
[2016-06-11 17:22] LABS: APPEARANCE CLEAR; RBC BF 800 /cumm; WBC BF 6 /cumm
[2016-06-11 17:56] LABS: HEMATOCRIT 23.1 % (37.0-47.0); HEMOGLOBIN 8.1 g/dL (12.0-16.0)
[2016-06-11 17:59] LABS: GLUCOSE CSF 153 mg/dL (39-75)
[2016-06-11 18:25] LABS: UR CREAT RANDOM 56.4 mg/dL (11-20); UR PROT RANDOM 80.6 mg/dL
--- NOTE | 2016-06-11 20:18 | CONSULTATION ---
DATE OF CONSULTATION: 06/11/2016 NEUROLOGY CONSULTATION - ICU BED 16 Ms. Sharma has reported previous diagnosed sarcoidosis and multiple myeloma. Son reports she seemed lethargic, hard to stay awake a few days ago and that has been gradually progressive. He reports he has not seen her have this appearance or altered consciousness at any point in the past. He reports no previous history of stroke, serious head injury, brain infection, seizure, other neurologic event. She had been afebrile this admission until very mild temperature elevation on last check. WBC count has been above 30,000. She has anemia. Platelet count is about 80,000. Brain imaging includes MRI with and without contrast reported to show nothing remarkable, specifically no evidence of cerebritis, encephalitis, meningitis, infarction, hemorrhage, mass. On examination, she is asleep, easy to wake up but not attentive. She grumbled and said a few words that I think I understood but she did not communicate beyond that. She did not follow simple commands. Head and neck are unremarkable. There is no meningismus. Hands and feet are warm. She has full lateral eye movement with passive head turning and gaze is conjugate. Pupils are round and react briskly to bright light. Facial motility is symmetric. Tongue is midline. Tone is equal in the limbs. Reflexes are 1+ at the wrists and absent at the ankles bilaterally. Plantar response is silent bilaterally. IMPRESSION: Global encephalopathy without definite clinical evidence of increased intracranial pressure, [employer] infection, focal cerebral lesion. Her past history is noted and would predispose her to opportunistic infections. I believe that she was treated with steroids recently and possibly chronically. As discussed with Dr. Trimble and with son at the bedside, we need to go ahead with lumbar puncture to obtain CSF. Further plans will depend on that report and on her clinical course. I do not think we need further imaging now. Her clinical appearance does not look like subclinical seizure but we might consider EEG if she does not become more consistently alert. Thank you for asking me to see Ms. Sharma. cc: MD SIVAKUMAR Yo III
--- NOTE | 2016-06-11 20:52 | CONSULTATION ---
DATE OF CONSULTATION: 06/11/2016 REASON FOR ADMISSION: Increased work of breathing with altered mental status. REASON FOR CONSULTATION: Acute kidney injury. HISTORY OF PRESENT ILLNESS: Ms. Sharma is a 55-year-old, female who has a history of sarcoidosis and ulcerative colitis. She has a baseline creatinine on 06/08 to 06/10 of 0.9 to 1.1. Patient was actually admitted with altered mental status and secondary to that she has had a CT of the head, abdomen and pelvis, and an MRI of the brain, all with contrast. Patient's creatinine this a.m. was found to be elevated at 1.5 with a repeat of 1.4 now trending downward this afternoon with IV fluids. It was noted that she had presented to [facility] Emergency Department on the complaining of back pain. She was discharged home with a diagnosis of sciatica. Patient continued to complain of increased work of breathing. Her family states that she has altered mental status and they had called 911. She presented to the ED. Her [id number] and son were at the bedside with her goddaughter currently at the bedside at this time. Patient remains hypoxic. She is on 50% face mask. She remains tachycardic. Heart rate is in the 120s-130s. It was noted that her hemoglobin was 7.4 on admission. She did show respiratory alkalosis with carboxyhemoglobinemia. Her labs do indicate that her liver function tests are elevated with mild renal insufficiency continuing. Unable to get good report from her sister or goddaughter. She is lethargic. She does open eyes to verbal stimuli and then immediately they close. No recognition of eye contact. She is followed by Dr. Trimble for her sarcoidosis. She is followed by Dr. Trevino for her ulcerative colitis. She has been seen by Dr. Sowmya Cobb for her iron deficiency anemia and anemias. PAST MEDICAL HISTORY: Recent diagnosis of community-acquired pneumonia, ulcerative colitis, sarcoidosis, chronic anemia, acid reflux, osteoarthritis, degenerative disc disease. PAST SURGICAL HISTORY: She had a cholecystectomy, hysterectomy and 2 sections. SOCIAL HISTORY: She lives with family. She is negative for alcohol, tobacco or illicit drug use. Family states that she used to work at the [employer] for years. She does come from a large family with 9 kids. Negative for renal disease. CURRENT ALLERGIES: No known drug allergies. HOME MEDICATIONS: Have currently not been reviewed. It is noted in her admission H and P that she is on Carafate, Lialda, prednisone, Nexium, Levaquin, Flexeril and Toradol. REVIEW OF SYSTEMS: Unable to obtain. Most obtained from family or from previous charts. HER MOST RECENT VITAL SIGNS: Temperature 100.3 degrees, blood pressure 121/83, heart rate 114, respirations 38, she remains on a 50% Ventimask, last recorded saturation is 96% . She has had 1350 in, 950 out in the last 12 hours. She has had 3500 out per Tripathi catheter in the last 24 up to this a.m. LABS: Sodium 147, potassium 3.5, chloride 110, CO2 18, BUN 56, creatinine 1.4, glucose 261. Her anion gap is 19, calcium 8.2, albumin previously at 3.6. Troponins and CPKs within these are all elevated, alkaline phosphatase of 295. Her previous white count this a.m. 34.32 , hemoglobin 7.5, hematocrit 21.5, with a platelet count of 81,000. Her pro time is 12.7 with an INR of 1.2. ABGs this morning pH 7.48, CO2 29, PO2 152, bicarbonate 23.3. Hemoglobin is 3.3 with plasma lactate of 2. Her urinalysis was negative for hematuria, negative for ketones, trace proteinuria, negative for bacteria. Patient had a spinal tap with cerebral spinal fluid for glucose, total protein is still pending. Urine drug screen was positive for opiates and oxycodone. Plasma ethylene alcohol was negative. Stool for occult blood is negative. Blood cultures are currently pending. PHYSICAL EXAMINATION: General: This is a 55-year-old, female. She is lying semiprone. She has 50% Ventimask in place. She is in no acute distress. Skin : Warm and dry. She remains overall lethargic. HEENT: Normocephalic, atraumatic. Conjunctivae pale. Her pupils are equal and reactive to light. Mostly constricted. Neck: Supple. Trachea midline. No JVD. Cardiovascular: She remains tachycardic. Regular rate and rhythm. No murmur or gallop appreciated. Abdomen: Round, soft, nontender. Positive bowel sounds. Genitourinary: Positive bowel sounds. No tenderness noted. Extremities: She is without edema. No clubbing or cyanosis. Neurological: As mentioned above, severe lethargy. ASSESSMENT AND PLAN: 1. Acute kidney injury. Likely ATN +/- prerenal. Patient has a history of sarcoidosis. She is euvolemic. She has had CT and MRI scans completed with contrast and she is also septic. We agree with continuing IV fluids. We will check her antibiotics for renal dosing. We will check urine electrolytes. It was noted on her CT of the pelvis on 2016 that there were no abnormalities noted on her kidneys. No masses or fluid retention. No indications for repeat at this time. 2. Electrolytes. These remain stable. 3. Acid-base balance. Patient has mild metabolic acidosis. Her anion gap has been widening, it is up to 19 this afternoon. She remains on 50% FiO2. We will continue to monitor. She may need sodium bicarbonate replacement. 4. Anemia. Hemoglobin is 7.3. She had 1 unit of packed red blood cells transfused since this level this a.m. Dr. Saige Trevino is following. 5. Sarcoidosis. Dr. Trimble has been consulted. 6. Altered mental status. Dr. Jaimes has been consulted with cerebrospinal fluid still pending, ruling out encephalitis-meningitis. I would like to thank you for allowing us to follow with this patient. Seen, data reviewed, discussed with Jose Reid on 06/11/16. I agree with the above assessment and plan of care. rg Dictated by CANDIDA Askew for Noah Capps MD cc: CANDIDA Askew MD [facility]
--- NOTE | 2016-06-11 21:05 | CONSULTATION ---
DATE OF CONSULTATION: 06/11/2016 PULMONARY CONSULTATION REQUESTING PHYSICIAN: Yusuf Salinas MD. REASON FOR CONSULTATION: Respiratory failure. HISTORY OF PRESENT ILLNESS: Ms. Sharma is a 55-year-old, black female who was admitted to the hospital in June 2013 with pulmonary infiltrates. The patient was diagnosed with sarcoidosis by lung biopsy. The patient was readmitted to the hospital in June 2013 with cholecystitis and she underwent a cholecystectomy along with a liver biopsy. The liver biopsy revealed non-caseating granulomatous changes consistent with sarcoidosis. The patient was diagnosed with multiple myelomas/ MGUS by bone marrow biopsy on the June 2013 admission. The patient was last seen by this physician in December. She had been admitted to the hospital with anemia and abdominal pain, and CT scan of the abdomen and pelvis revealed possible inflammation in the cecum and ascending colon consistent with colitis. Followup CT scan in January was improved. She was admitted to the hospital on 06/05/2016 with nausea and vomiting. She was being treated for ulcerative colitis with mesalamine at that time. The patient was on prednisone 30 mg per day but this was not a pulmonary dose. She returned to the emergency room yesterday with altered mental status. CT scan of the brain was negative. CT scan of the abdomen and pelvis reveals splenomegaly, hiatal hernia, with some subcutaneous edema. CT scan of the thorax revealed significant decrease in adenopathy compared to previous CT scan 06/28/2013. There was cardiomegaly. There was mild hazy infiltrates. No dense consolidation. PAST MEDICAL HISTORY: 1. Sarcoidosis with known involvement of the liver and lungs. 2. Ulcerative colitis. 3. Multiple myeloma. 4. Obesity. 5. History of hypercalcemia and renal failure related to sarcoidosis. SOCIAL HISTORY: No tobacco or alcohol use. FAMILY HISTORY: Noncontributory to current presentation. REVIEW OF SYSTEMS: Limited due to patient's lethargy. PHYSICAL EXAMINATION: General: Reveals an acutely ill-appearing, black female. She responds to painful stimuli. Vital Signs: Blood pressure 142/85, heart rate 116, respiratory rate 28, oxygen saturation 97%. HEENT: Pupils are equal and reactive. Oropharynx is dry. Neck: Supple. Chest: Reveals good air entry bilaterally. Cardiac Examination: Increased rate. Regular rhythm. Abdomen: Soft. Extremities: Without edema. LABORATORIES: Arterial blood gas reveals a pH of 7.48, pCO2 of 29, PO2 of 152. White blood count 34,000, hemoglobin 7.5, platelet count 81,000. Chemistry: Sodium 147, potassium 3.5, chloride 110, bicarbonate 18, BUN 56, creatinine 1.4. IMPRESSION: A 55-year-old with history of sarcoidosis, possible myeloma, being treated for ulcerative colitis, who presents with low-grade elevation in temperature, leukocytosis, and apparent progressive thrombocytopenia. She is also having altered mental status. The patient is tachypneic but this is most likely from its increase in central drive. She has mild respiratory failure. She has minor changes on CT scan which is not likely the etiology for her decline. RECOMMENDATIONS: 1. Recommend evaluation by Neurology [facility] even though the MRI is negative. 2. Continue steroids as you are doing. 3. With altered mental status, drop in platelets, renal insufficiency, will begin evaluation for TTP although this is felt to be less likely. 4. Continue oxygen for mild hypoxemic respiratory failure. 5. Continue volume resuscitation for hypernatremia and acute renal insufficiency. 6. Additional recommendations pending hospital course. cc: Khoa Trimble MD
[2016-06-11] MEDS ORDERED: VANCOMYCIN 2 GM in NS 500 ML IV SCH (23:00)
[2016-06-11] MEDS ORDERED: BLISTEX MEDICATED BERRY LIP BALM TOP PRN (23:34)
[2016-06-12] MEDS: 1/2 NS 1,000 ML IV SCH (00:21)
[2016-06-12] MEDS: SODIUM CHLORIDE 0.9% INJ SCH (01:17)
[2016-06-12] MEDS: PROTONIX IV SCH ×2 (01:17→14:15)
[2016-06-12 02:05] LABS: BASO% 0.6 % (0.0-0.8); EOS# 0.01 X1000 (0.0-0.7); HEMATOCRIT 20.3 % (37.0-47.0); HEMOGLOBIN 7.2 g/dL (12.0-16.0); IMM GRAN# 2.06 X1000 (0.0-0.04); IMM GRAN% 4.7 % (0.0-0.5); LYMPH# 10.26 X1000 (1.2-3.4); LYMPH% 23.5 % (20.5-51.1); MANUAL DIFF NEEDED? YES; MCH 28.3 PG (27-31); MCHC 35.5 g/dL (33-37); MCV 79.9 FL (81-99); MONO# 2.02 X1000 (0.11-0.59); MONO% 4.6 % (1.7-9.3); MPV 9.3 FL (7.4-10.4); NEUT% 66.6 % (42.2-75.2); PLT 54 X1000 (130-400); RBC 2.54 XMIL (4.2-5.4)
[2016-06-12] MEDS ORDERED: MORPHINE IV ONE (02:24)
[2016-06-12] MEDS ORDERED: TYLENOL PR ONE (02:27)
[2016-06-12] MEDS ORDERED: HALDOL IM ONE (02:30)
[2016-06-12 02:32] LABS: BANDS 16 % (0-1); LYMPHS 8 % (21-51); MONO 4 % (1-9); NRBC 28 % (0-0)
[2016-06-12] MEDS: DUONEB (A & A) INH SCH ×3 (03:55→11:38)
[2016-06-12] MEDS: ZOSYN 3.375 GM/NS 3.375 GM/50 ML IVPB IV SCH ×3 (04:06→14:15)
[2016-06-12 04:31] LABS: ALLEN TEST YES; BE -4.1 mmoll (-3.0-3.0); BLOOD TYPE ARTERIAL; DRAW SITE R RADIAL; METHB 2.7 % (0.0-1.5); O2(CT) 12.2 mL/dL (15.0-23.0); PCO2(98.6) 24 mmHg (35-45); PO2(98.6) 121 mmHg (60-100); SAMPLE BLOOD; SAO2 100.7 % (95.0-100.0); pH(98.6) 7.49 (7.35-7.45)
[2016-06-12 04:33] LABS: MODALITY BI PAP
[2016-06-12] MEDS: SOLU-MEDROL IV SCH ×2 (04:47→14:14)
[2016-06-12 05:25] LABS: INR 1.08; PROTIME 11.4 Seconds (9.2-11.7); PTT 22.9 Seconds (22.0-36.0)
[2016-06-12 05:40] LABS: AGAP 19; ALBUMIN 3.2 g/dL (3.5-5.0); ALKALINE PHOSPHATASE 295 U/L (32-104); BUN 72 mg/dL (8-22); CALCIUM 8.2 mg/dL (8.8-10.2); CHLORIDE 121 mmol/L (98-107); COSMO 341; GOT 73 U/L (10-30); GPT 43 U/L (10-36); POTASSIUM 3.1 mmol/L (3.5-5.1); SODIUM 157 mmol/L (136-145); TCO2 17 mmol/L (25-35); TOTAL BILIRUBIN 1.84 mg/dL (0.20-1.00); TOTAL PROTEIN 5.7 g/dL (6.3-8.3)
[2016-06-12 05:50] LABS: LDH > 2500 U/L (135-214)
--- NOTE | 2016-06-12 06:47 | CONSULTATION ---
DATE OF CONSULTATION: 06/11/2016 REFERRING PHYSICIAN: Yusuf Salinas M.D. PRIMARY CARE PROVIDER: Brant Hancock M.D. PRIMARY CONGRESSIONAL DISTRICT AIDE/ONCOLOGIST: Dr. Sowmya Cobb M.D. PRIMARY OFFICE MACHINE INSTALLER: Dr. Khoa Trimble M.D. PRIMARY NEUROLOGIST: Addison Jaimes M.D. INDICATION FOR CONSULTATION: 1. Severe anemia. 2. Ulcerative colitis. HISTORY OF PRESENT ILLNESS: The patient is a 55-year-old female who is followed in our clinic. She has a history of significant peptic ulcer disease, Schatzki's ring, hiatal hernia, gastroparesis, gastritis and duodenal polyps. In addition, she has had peptic ulcer disease in the past. She also was diagnosed with ulcerative colitis after undergoing a colonoscopy that was remarkable for michel colitis. This was confirmed with an IBD profile that was positive for ulcerative colitis with the 91% positive predictive value. She was initially placed on Lialda and prednisone with a transient improvement. She has subsequently relapsed and was recently placed on Remicade for treatment of her ulcerative colitis. It should be noted that on 05/14/2016, she presented to the [facility] for an EGD and colonoscopy. She was found to have severe erosive gastritis, duodenitis, Schatzki's ring, and hiatal hernia on EGD. On colonoscopy, there was active colitis with diffuse ulcerations in her colon. She refused Prednisone and Imuran. She also refused evaluation at [facility] or [place] given her persistent colitis and anemia on Remicade. On 05/18/2016, the gastric emptying study confirmed gastroparesis. The patient called the office with the complaint of intermittent dysphagia and early satiety. We had recommended a modified barium swallow. However, the patient was admitted with pneumonia prior to completing her evaluation. Her clinical course has been complicated by persistent pneumonia and sepsis. She was discharged to home and readmitted with altered mental status, shortness of breath and presumed sepsis. She remains in the ICU with altered mental status and findings consistent with sepsis. She was again noted to have a significant anemia. However, she is now in respiratory distress. We are now asked to participate in her care. PAST MEDICAL HISTORY: 1. Erosive esophagitis. 2. Schatzki's ring. 3. Hiatal hernia. 4. Gastroparesis. 5. Erosive gastritis. 6. Duodenal polyps. 7. Pancreatic rest. 8. History of peptic ulcer disease. 9. Ulcerative colitis. 10. Chronic anemia, both iron deficiency and anemia of chronic disease. 11. Pancolitis with an IBD profile consistent with ulcerative colitis. 12. Hypertension. 13. Sarcoidosis. 14. Osteoarthritis. 15. Degenerative joint disease. 16. Obesity. 17. Pneumonia. PAST SURGICAL HISTORY: 1. Cholecystectomy. 2. Hysterectomy. 3. x2. SOCIAL HISTORY: Negative for alcohol, tobacco or recreational drug use. MEDICATION ALLERGIES: None. HOME MEDICATIONS: 1. Nexium 40 mg daily. 2. Carafate 1 g 4 times a day. 3. Prednisone 10 mg t.i.d. 4. Lialda 4.8 g p.o. daily. 5. Levaquin 750 mg daily. 6. Ketoralac as needed. 7. Flexeril 10 mg p.o. t.i.d. (It should be noted that the patient was requested to discontinue the Lialda once she received the Remicade. She currently remains on Lialda). PHYSICAL EXAMINATION: General: On exam, the patient is in mild to moderate respiratory distress. Vital Signs: Her blood pressure is 146/89, pulse 117, respiration 38, temperature of 98.3 degrees. HEENT: Negative for jaundice. Her conjunctivae are slightly pale. Her oropharyngeal mucosa membranes are dry. She does have a Venti mask in place. On pulmonary exam she has inspiratory and expiratory wheezes. She is somewhat tachypneic. Cardiovascular Examination: She has a tachycardia but a regular rhythm. No gallops, murmurs, or rubs. Abdominal Exam: Reveals hypoactive bowel sounds. The abdomen is soft, nontender, but there is mild air distention. Extremities: Bilaterally are negative for cyanosis, clubbing, or edema. OBJECTIVE DATA: Reveals a hemoglobin of 8.1 with hematocrit of 23.1, and a white count of 34.32. She has 81,000 platelets. On serum chemistries, her sodium is 147, potassium 3.5, chloride 110, CO2 is 18, BUN 56, creatinine 1.4 with a glucose of 261. Calcium is 8.2, total bilirubin is 2.30, AST 76, ALT 46, alkaline phosphatase 295, total protein 6.3, and albumin 3.6. Her CK is rising and is now 376 with a CK-MB of 6.61 and a troponin 0.211. IMPRESSION: 1. Sepsis. 2. Anemia. 3. Abnormal liver function tests. 4. Ulcerative colitis. 5. Sarcoidosis. 6. Zinc deficiency based on recent labs. RECOMMENDATION: 1. The patient's anemia is most likely due to her active ulcerative colitis that was present in April, on endoscopy. Therefore, I would transfuse as indicated. 2. Please consult Dr. Sowmya Cobb as she has recently received Remicade therapy. 3. Because she has a history of ulcerative colitis and her liver function tests have increased dramatically in the last few days, I recommend an abdominal ultrasound to assess for ascending cholangitis. 4. I recommend increasing her Protonix to 40 mg IV q.12 hours. 5. Continue antibiotics as you are doing. 6. Continue the steroid therapy as you are doing. 7. The patient is very critically ill without a clear source or cause. I would consult Dr. Khoa Trimble. 8. Additional recommendations to follow based on her clinical course. cc: MD Yusuf Mckinnon MD James E. Boyle, MD Stephen A. Branning, MD Heather Shah, MD Eston G. Norwood III, MD MTDD
--- NOTE | 2016-06-12 08:25 | Diag Imaging Result Document ---
PROCEDURE NAME: CHEST-PORTABLE - 06/12/2016 SINGLE FRONTAL RADIOGRAPH OF THE CHEST: COMPARISON: 06/11/2016. FINDINGS: Mild perihilar opacities are approximately stable likely representing mild pulmonary venous congestion and, perhaps, minimal central interstitial edema. No new consolidations are identified. Cardiac silhouette is stable. IMPRESSION: Stable chest.
[2016-06-12 09:21] LABS: HEMATOCRIT 20.7 % (37.0-47.0); HEMOGLOBIN 7.4 g/dL (12.0-16.0)
[2016-06-12] MEDS ORDERED: POTASSIUM CHLORIDE 20 MEQ in D5 1/4 NS 1,000 ML IV SCH (09:30)
--- NOTE | 2016-06-12 09:37 | PROGRESS NOTE ---
DATE: 06/12/2016 SUBJECTIVE: She is currently on BiPAP and remains altered. She is not coordinating well with the BiPAP such that she is resisting inspiration with a closed glottis. She groans and resists me, but no other interaction. OBJECTIVE: Vital Signs: Blood pressure 113/66, heart rate 116, respirations 30. Afebrile. General: She is a middle-aged woman, on BiPAP. Altered mental state as above. Skin: Warm and dry. Conjunctivae are pink. Pupils are 2 mm and symmetrical. Again she resists eye opening. Neck: Neck veins are not visible. Trachea is midline. Heart: Regular but difficult to auscultate. Lungs: Have equal breath sounds. Again difficult to auscultate because of her poor ventilator coordination. Abdomen: Soft, nontender. Bowel sounds are present. Extremities: Have no edema, clubbing, or cyanosis. LABORATORY DATA: Sodium 157, potassium 3.1, chloride 121, bicarbonate 17, BUN 72, creatinine 1.6, urine sodium 15 with FENA less than 1%. Hemoglobin 7.2. IMPRESSION: 1. Acute kidney injury overlying a history of normal kidney function. The urine electrolytes suggests prerenal state. She is receiving IV fluids and is in positive fluid balance. We will continue this course through the day. Her labs have stabilized. 2. Electrolytes: Hypernatremia. She has half-normal saline infusing at 125 an hour. Continue this care and observe her response. 3. Acid-base: Moderate metabolic acidosis. No changes. cc: Noah Capps MD
[2016-06-12 10:34] LABS: RETIC% 3.84 % (0.8-2.1); RETIC-HE 28.8 PG (28.2-36.6)
[2016-06-12] MEDS ORDERED: HUMULIN R SUBQ SCH (11:00)
[2016-06-12] MEDS: LIALDA PO SCH (11:10)
--- NOTE | 2016-06-12 11:48 | PROGRESS NOTE ---
DATE: 06/12/2016 SUBJECTIVE: Ms. Sharma is supine, breathing spontaneously, turning her head left and right spontaneously, moving all limbs minimally spontaneously. With vigorous shoulder rub, she put her gaze on me, grunted or grumbled a little bit, but did not communicate further and did not follow commands. Tone is equal in the limbs. Extraocular movements are full. Facial motility is symmetric. There is no meningismus. Her CSF is unremarkable so far. Cultures were negative. There was a significant number of red blood cells on initial tube, but that cleared. I do not have an explanation for her encephalopathy. This appears to be global , nonfocal. The CSF pressure was elevated, but I do not see clinical evidence of increased intracranial pressure. Negative imaging is reassuring. I will order EEG. No other suggestions today. Thanks for allowing me to follow Ms. Sharma. cc: Addison Jaimes III, MD MTDD
[2016-06-12 11:51] LABS: POTASSIUM 3.5 mmol/L (3.5-5.1)
[2016-06-12] MEDS ORDERED: D5W 1,000 ML IV SCH (12:09)
[2016-06-12 13:10] VITALS: BP 128/90
--- NOTE | 2016-06-12 13:36 | PROGRESS NOTE ---
DATE: 06/12/2016 SUBJECTIVE: The patient is doing about the same. Still weak, but arousable. Opens her eyes and answer a few simple questions. OBJECTIVE: Vital signs: Blood pressure is 111/77, pulse ranging from 113 to 121, breathing anywhere from 20-45 times a minute, temperature 99.1 degrees, satting 100% on BiPAP on 30% FiO2. General appearance: Morbidly obese, black female in moderate distress. HEENT: Anicteric sclerae. Clear conjunctivae. Neck: Supple. No JVD. No bruit. Cardiovascular: Tachycardic. No murmur, rubs or gallops. Pulmonary: Coarse crackle, but no wheezes. GI: Soft, nontender, nondistended. Normoactive bowel sounds. Musculoskeletal: No clubbing, cyanosis, or edema. LABORATORY: Her hemoglobin and hematocrit are 7.4 and 20.7, stable. She has received only 1 unit thus far. Her white count is 43.70, platelets of 54. Chemistry: Sodium 157, potassium is 3.1, chloride 121, bicarb 17, BUN 72, creatinine 1.6, glucose of 248. ASSESSMENT/PLAN: This is a 55-year-old black female admitted to the hospital for decreased mentation, tachypneic and tachycardic. 1. Altered mentation, multifactorial. Can be infections, psychosis exacerbation. The patient was also found to have anemia. Neurology is following. A lumbar puncture was done. Cultures still pending. I started the patient on broad-spectrum antibiotics. Pulmonology following for acute respiratory failure. 2. Anemia. No evidence of bleeding. She is noted to have ulcerative colitis. Gastroenterology was consulted and is following. 3. Hyponatremia. We changed her fluid to D 5W. We will recheck her renal function in the morning. 4. Hypokalemia. Will replete the potassium. 5. Acute renal failure, stable. Nephrology is following. The patient became a little uremic today. 6. Tachycardia. The patient on diltiazem 10 mg intravenous every 8 hours. We will continue supportive care. We will continue to follow blood count. TOTAL CRITICAL CARE TIME ON THIS PATIENT: 35 minutes.
--- NOTE | 2016-06-12 14:12 | Diag Imaging Result Document ---
PROCEDURE NAME: US GB < RUQ (LIMITED) - 06/12/2016 RIGHT UPPER QUADRANT ULTRASOUND: FINDINGS: Difficult exam due to patient's body habitus and condition. No aneurysmal dilatation to the abdominal aorta. Normal pancreatic head. The pancreatic body and tail are obscured. Normal inferior vena cava. There is fatty infiltration of the liver. The common bile duct measures 5 mm. The gallbladder has been removed. Normal right kidney. No hydronephrosis. No ascites. IMPRESSION: 1. Cholecystectomy. 2. Fatty infiltration of the liver.
--- NOTE | 2016-06-12 16:41 | EEG REPORT ---
DATE: 06/12/2016 ICU BED 15. EEG NUMBER: [id number] done on 06/12/2016. COMMENT: This is a digitally recorded EEG done portably in the ICU on a 55-year-old patient with obtundation. FINDINGS: The record is composed of monotonous polymorphic and rhythmic slowing into the theta range across the hemispheres symmetrically. There is some slowing frontally into the delta range bilaterally. Noxious stimulation was associated with slight increase in the faster beta rhythm. Photic stimulation did not alter the record. No definite epileptiform discharge was identified. INTERPRETATION: Abnormal EEG because of generalized slowing. CORRELATION: This is indicative of a diffuse encephalopathy and is nonspecific. cc: Addison Jaimes III, MD
--- NOTE | 2016-06-12 18:31 | DISCHARGE SUMMARY ---
ADMISSION DATE: 06/10/2016 DISCHARGE DATE: 06/12/2016 DATE OF TRANSFER: 06/12/2016. DISCHARGE DIAGNOSES: 1. Thrombotic thrombocytopenic purpura. 2. Ulcerative colitis. 3. Chronic anemia. 4. Recent history of pneumonia. 5. Hypernatremia. 6. Hypokalemia. 7. Altered mental status probably secondary to thrombotic thrombocytopenic purpura. 8. Tachycardia. 9. History of anemia secondary to chronic diseases. 10. Diabetes type 2. DISCHARGE MEDICATIONS: We will keep the patient on Zosyn and vancomycin along with Solu-Medrol 80 mg q.8 hours. CONSULTATIONS: 1. GI was consulted. Dr. Trevino saw the patient regarding anemia. The patient is known to have ulcerative colitis and anemia with UC flare and blood transfusion. 2. Oncology was consulted. Dr. Cobb saw the patient and did a peripheral smear, and noticed that the patient appeared to have TTP. 3. Neurology was consulted for altered mental status. Dr. Jaimes saw the patient and did a lumbar puncture. The results are still pending. The patient is going to get an EEG in the ICU. 4. Pulmonology was consulted for acute respiratory failure. The patient is breathing about 25-40 times a minute although her saturation is normal. Her pH showed fairly alkalotic with a CO2 of about 20, and oxygen is stable. SIGNIFICANT LABORATORY AND IMAGIN. MRI of the brain was negative for any acute process. 2. CTA of the chest was negative for PE. 3. CT of the abdomen and pelvis showed no evidence of abscess. There is some hazy bilateral perihilar infiltrates versus edema. 4. Hemoglobin and hematocrit on admission was 7.5 and 21.5. The patient received a unit. Her hemoglobin and hematocrit has remained just barely above 7. No active bleeding noticed. PT 11.4, INR 1.08. Chemistry: Today sodium went up from 147 yesterday to 157 today, potassium 3.5, chloride 121, bicarbonate 17, BUN 78, creatinine 1.9 up to 1.16 this morning. HOSPITAL COURSE: The patient is a 55-year-old, white female who was recently discharged from the hospital after she had been treated for pneumonia. The patient went home and came back 2 days later with altered mentation, tachypneic and weakness. I saw the patient in the ER. She was able to answer a few questions. Her family stated that the patient by the time she got through the door from her discharge continued to have shortness of breath and basically spent 2 days on the couch not able to do much, not even eating or drinking. At times she got confused and they brought her back to the emergency room. She was able to answer some basic questions at first but very quickly went to sleep. Because of her tachycardia we were concerned that the patient may have PE. We did a CT scan of her chest and there was no PE. We scanned the abdomen and pelvis to find any evidence of infection because her white count was above 40,000 when she came in. It was remarkably different from the time when she was discharged. We did not find any evidence of infection. We put her on broad-spectrum antibiotics and cultured the patient, and admitted her to ICU for close observation. In the meantime, we sent the patient for an MRI of the brain. The MRI was normal. We consulted Neurology. Dr. Jaimes saw the patient and did a lumbar puncture, and the fluid showed only 6 white count, but with 800 RBCs showing evidence of a dramatic tap with blood glucose of 153 and proteins were 32. The CSF fluid was also sent for a battery of lab work that is not yet available. We also consulted Oncology because her white count was elevated and her platelets started dropping. Her kidney functions started getting worse and the patient has continued to remain altered. Dr. Sowmya Cobb saw the patient and did a peripheral smear that showed signs of TTP and advised to transfer the patient over to [place] after she talked to her colleague in [place] because the patient will need plasmapheresis. I contacted Dr. Khoa Ku who is the hospitalist over at [place] who graciously accepted the patient for transfer. We will continue the current medications for now. She has been on steroids since admission. For her hypernatremia we changed her fluid to D5W and will continue her IV fluids as is. The patient is in critical condition and will need to be transferred to higher level of care. We are currently waiting for a bed for her to be transferred. TOTAL TIME SPENT ON DISCHARGE: 35 minutes.
--- NOTE | 2016-06-13 11:22 | CONSULTATION ---
DATE OF CONSULTATION: 06/12/2016 CONSULTATION REQUESTED BY: The hospitalist service. REASON FOR CONSULTATION: Thrombocytopenia, patient known. HISTORY OF PRESENT ILLNESS: Ms. Sharma is a 55-year-old, female, who is known to us as we have previously treated her for iron deficiency anemia and then as of most recently have started her on Remicade for ulcerative colitis. She presented to the emergency department complaining of hypoxia and tachycardia. The patient actually was inpatient admitted for pneumonia about 2-3 days prior to her most recent presentation. Workup proceeded and the patient was then admitted to the hospital with sepsis. The patient initially had normal platelets at 137,000 but they have rapidly declined. Patient is also anemic and having episodes of altered mental status including obtundation at times. Labs showed the patient have a platelet count now all way down to 54 with an extremely elevated LDH. There does not appear to be any notable cause for the patient's current symptoms. It is believed that she most likely has TTP. The patient is currently in the ICU. No family members by her side. She is on a BiPAP machine and is tachypneic. PAST MEDICAL HISTORY: 1. Recent diagnosis of community-acquired pneumonia. 2. Ulcerative colitis, recently started Remicade is status post 2 doses of Remicade. 3. Sarcoidosis. 4. Chronic anemia, iron deficiency. 5. Acid reflux. 6. Osteoarthritis. 7. Degenerative disk disease. PAST SURGICAL HISTORY: Positive for cholecystectomy, hysterectomy, and previously 2 C sections. SOCIAL HISTORY: Patient denies any history of tobacco, alcohol or drug use. She lives by herself. She has a supportive family. REVIEW OF SYSTEMS: Unable to obtain as the patient is unable to give history. Above history is taken mainly from the chart. PHYSICAL EXAMINATION: Vital Signs: Currently temperature is 99 degrees, heart rate is 120, respirations anywhere from 20-45, blood pressure 128/98, O2 saturation is 100% on a non- rebreather. General: This is an female, lying in a hospital bed in the ICU. She has a non-rebreather on and is tachypneic. She will open her eyes to command. There is no family at bedside. HEENT: Head appears to be normocephalic, atraumatic. HEENT: Eyes, pupils are equal, round, reactive. Ears, nose, throat, neck and mouth, appears that trachea is midline. Unable to assess mouth due to having a mask on. Cardiovascular: Tachycardia noted. Regular rhythm. Respiratory: Increased work of breathing, increased respiratory rate. No rhonchi, rales or wheezing noted. Gastrointestinal: Abdomen is soft and nondistended. Musculoskeletal: No obvious bony abnormalities. Extremities: No edema noted. Neurologic: Patient is unable to communicate given her current state. DIAGNOSTIC DATA: White blood cells of 43.7 today with a hemoglobin of 7.2, hematocrit 20.3, platelets are 54. Schistocytes are present. Percent reticulocyte is 3.84, reticulocyte hemoglobin equivalent is 28.8. Fibrinogen is 383.4, INR 1.08. Sodium 157, potassium 3.5, chloride 121, CO 2 is 17, BUN is 78, creatinine 1.9, glucose 293, total bilirubin is 1.84, AST, ALT of 73 and 43 respectively, alkaline phosphatase is 295. LDH is greater than 2500. Ferritin is 27,[address] previously negative without any abnormalities. CT angio of the chest reveals no evidence of pulmonary embolism. CT of abdomen and pelvis reveals no acute findings. Brain MRI is negative. Blood cultures are negative after 48 hours. Cerebral spinal fluid is with no growth and occult blood from stool was negative. ASSESSMENT AND PLAN: 1. Patient appears to most likely have thrombotic thrombocytopenic purpura at this time. We will plan to initiate transfer to [facility], or [facility] in order to receive empiric phoresis since we cannot rule out TTP. JENNY SDS 13 level has been sent. Her smear does have schistocytes as mentioned previously. She has lots of nucleated red blood cells with low platelets. 2. Altered mental status. This is new onset. No clear metabolic or infectious cause can be identified. She had a lumbar puncture with an increased opening pressure. Cerebral spinal fluid testing is currently pending. The patient was seen in the office about 2 weeks ago as an outpatient and she has had a dramatic decline since that visit. 3. Renal failure. Possibly related to what is likely TTP. Patient's creatinine is up to 1.9. She has had hydration without any improvement in her kidney function. 4. Anemia. Patient has a history of iron deficiency anemia. Previously related to GI bleeding. Hemoccult stool is negative as previously mentioned. The patient's baseline hemoglobin is around 10. She has dropped down to 7.2 today. She had an extremely high ferritin as well. Possible Hantavirus pulmonary syndrome cannot be completely ruled out. 5. Thrombocytopenia. Looking more like thrombotic thrombocytopenic purpura given that her fibrinogen is actually normal at 383.4. Transfer as per above. 6. Ulcerative colitis. Patient is currently receiving Remicade as an outpatient. Her last Remicade dose was 06/02/2016. Thank you for allowing us to participate in Ms. Sharma' care while she is at [facility]. Arranging transfer as per above. We will continue to follow along until the transfer is complete. Dictated by ESA Robles for Sowmya Cobb MD cc: Sowmya Cobb MD
== END 2016-06-12 15:26 | disposition short-term general hospital (02) ==
LOC: ED 08:48 → EDIPHOLD 12:12 → ICU 20:08
PROVIDERS: ATTEND Internal Medicine